=== PATIENT | female | born 1955 | race Caucasian/White ===

== ENCOUNTER → 2016-05-05 | Outpatient (CLI) | payer MEDICARE, OTHER ==
[2016-05-05 15:17] VITALS: BP 129/75; PULSE 84; RESP 16; TEMP 97.1; BMI 28.0
--- NOTE | 2016-05-05 16:24 | P.HPBAR ---
Bariatric H&P - History & Physicial H&P Date: 05/05/16 History & Physicial: Visit/CC: Patient initial contact: Initial weight: 56.812 kg Initial weight in pounds: 125.00 Height: 4 ft 8 in Initial BMI: 28.0 Last weight: Current weight: 56.812 kg Current weight in pounds: 125.00 Current BMI: 28.0 [place] body weight (based on NIH guidelines): 36.287 kg Excess body weight loss: 0.0% The patient is a 60 year-old F who presents for Bariatric Assessment. The patient presents today for sleeve gastrectomy fall. She's had some minimal GERD symptoms and dysphagia. Past Medical History Past Medical History: Asthma, Diabetes Mellitus, Hyperlipidemia, Rheumatoid Arthritis (RA) Additional Past Medical History / Comment(s): Neck/back pain, DVT History of Any Multi-Drug Resistant Organisms: None Reported Past Surgical History: Bariatric Surgery, Section, Orthopedic Surgery Past Psychological History: Depression Smoking Status: Never smoker Past Alcohol Use History: Rare Past Drug Use History: None Reported Surgical - Exam Vital Signs Temp Pulse Resp BP 97.1 F L 84 16 129/75 05/05/16 15:09 05/05/16 15:09 05/05/16 15:09 05/05/16 15:09 - General well developed, no distress - Eyes PERRL - ENT normal pinna - Respiratory normal expansion - Cardiovascular Rhythm: regular - Abdomen Abdomen: soft, non tender Bariatric Assessment & Plan Plan: Status post sleeve gastrectomy. Patient will undergo esophagram. She'll also be scheduled for EGD to evaluate her GERD symptoms. Bariatric Checklist Checklist: Plan: Checklist: EGD: 1. Hiatal hernia: 2. H. Pylori: HgbA1c: Vitamin D: Smoking: Never smoker Primary care physician referral: Psychiatry clearance: Cardiology clearance: Sleep study: Diet journal: VTE risk score: VTE risk level: Rehab needs at discharge:
== END | disposition home or self-care (01) ==
LOC: BARWHC3 14:21
PROVIDERS: ATTEND Surgery
DX: Z48.815 Encounter for surgical aftercare following surgery on the digestive system (principal); Z98.84 Bariatric surgery status; K21.9 Gastro-esophageal reflux disease without esophagitis; R13.10 Dysphagia, unspecified; Z68.28 Body mass index [BMI] 28.0-28.9, adult
CPT/HCPCS: 99211

== ENCOUNTER → 2016-05-15 | Outpatient (CLI) | payer MEDICARE, OTHER ==
--- NOTE | 2016-05-15 12:40 | FL ---
EXAMINATION: Cervical and Thoracic Esophagram DATE OF EXAM: 05/15/2016 12:29 PM CLINICAL INDICATION: 60-year-old female dysphagia, nausea, vomiting, and heartburn. Patient with lap band for 7 years removed and replaced with a gastric sleeve 3 years ago. COMPARISON: Total Fluoroscopy Time: 1.7 minutes FINDINGS: The swallowing mechanism is normal and hypopharyngeal anatomy is preserved. The cervical and thoracic portions have a normal course and caliber. There are mild to moderate terti chapo peristaltic contractions. The mucosa is normal and no persistent filling defect is encountered. There is a moderate-sized hiatal hernia and moderate to severe gastroesophageal reflux with Valsalva maneuver when the patient is supine. Postsurgical changes of sleeve gastrectomy are noted in the stomach. There is a small focal outpouchi ng of contrast projecting towards the right and posteriorly along the inferior margin of the hiatal h ernia probably postsurgical mural redundancy. No persistent filling defect seen. IMPRESSION: Moderate-sized hiatal hernia and moderate to severe gastroesophageal reflux. Status post sleeve gastr ectomy.
== END | disposition home or self-care (01) ==
LOC: RADFLWHC 11:31
PROVIDERS: ATTEND Surgery
DX: K21.9 Gastro-esophageal reflux disease without esophagitis (principal); K44.9 Diaphragmatic hernia without obstruction or gangrene; Z98.84 Bariatric surgery status
CPT/HCPCS: 74220

== ENCOUNTER 2016-05-16 07:01 | Day surgery (SDC) | payer MEDICARE, OTHER ==
[2016-05-13 14:26] VITALS: BMI 27.1
[~2016-05-16 07:01] MED LIST: LACTATED RINGERS 1,000 ML IV SCH
[2016-05-16 07:18] VITALS: RESP 18; TEMP 96.3
[2016-05-16 07:44] LABS: Glucose,Whole Blood 97 mg/dL (75-99)
[2016-05-16] MEDS ORDERED: PROPOFOL 10 MG/ML 20 ML VIAL IV ONE (07:51)
[2016-05-16] MEDS ORDERED: LIDOCAINE 1% INJ 10MG/ML (20 ML MDV) ONE (07:51)
[2016-05-16] MEDS ORDERED: GLYCOPYRROLATE 0.2 MG/ML 2 ML VIAL ONE (07:51)
--- NOTE | 2016-05-16 08:00 | P.GSHP ---
History of Present Illness H&P Date: 05/16/16 Chief Complaint: GERD This is a 60-year-old female who presents today for EGD. Patient has had problems with heartburn and reflux. She is undergoing recent esophagram shows evidence of a hiatal hernia. - Constitutional Constitutional: Reports as per HPI Past Medical History Past Medical History: Asthma, COPD, Diabetes Mellitus, Deep Vein Thrombosis (DVT ), GERD/Reflux, Hyperlipidemia, Osteoarthritis (OA) Additional Past Medical History / Comment(s): nausea and vomiting with food,Neck /back pain, DVT lt leg 2003,lower leg swelling,constipation History of Any Multi-Drug Resistant Organisms: None Reported Past Surgical History: Bariatric Surgery, Section, Joint Replacement, Orthopedic Surgery Additional Past Surgical History / Comment(s): Gastric Sleeve, x2, hematoma removed from scalp,rt knee replacement,lt knee OR,"tummy tuck" Past Anesthesia/Blood Transfusion Reactions: Previous Problems w/ Anesthesia Additional Past Anesthesia/Blood Transfusion Reaction / Comment(s): "feels like I have a hard time breathing when first waking up with Anesthesia".No hx blood transfusion Past Psychological History: Depression Smoking Status: Former smoker Past Alcohol Use History: Rare Additional Past Alcohol Use History / Comment(s): smoked from age [age], smoked approx 1-2ppd Past Drug Use History: None Reported - Past Family History Mother Additional Family Medical History / Comment(s): heart problems,stomach problems Father Family Medical History: Diabetes Mellitus Sister(s) Family Medical History: Cancer, Congestive Heart Failure (CHF), Diabetes Mellitus, Renal Disease Additional Family Medical History / Comment(s): breast CA Medications and Allergies Home Medications Medication Instructions Recorded Confirmed Type Albuterol Sulfate [Proair Hfa] 2 puff INHALATION Q6HR PRN 12/26/13 05/16/16 History Diazepam [Valium] 5 mg PO BID PRN 12/26/13 05/16/16 History FLUoxetine HCL [PROzac] 40 mg PO HS 12/26/13 05/16/16 History Fluticasone/Salmeterol [Advair 1 puff INHALATION Q12HR PRN 12/26/13 05/16/16 History 250-50 Diskus] Furosemide [Lasix] 20 mg PO DAILY 12/26/13 05/16/16 History Naproxen [Naprosyn] 500 mg PO Q12HR PRN 12/26/13 05/16/16 History Potassium Chloride [Klor-Con 10] 10 meq PO DAILY 12/26/13 05/16/16 History Simvastatin [Zocor] 40 mg PO HS 12/26/13 05/16/16 History Triamcinolone 0.1% Cream [Kenalog] 1 applicatio TOPICAL BID 12/26/13 05/16/16 History metFORMIN HCL 1,000 mg PO QAM 12/26/13 05/16/16 History Calcium Carbonate [Tums] 500 mg PO QID PRN 05/13/16 05/16/16 History HYDROcodone/APAP 10-325MG [[place] 1 tab PO Q6H PRN 05/13/16 05/16/16 History 10-325] Loratadine 10 mg PO DAILY 05/13/16 05/16/16 History metFORMIN HCL [Glucophage] 500 mg PO 1900 05/13/16 05/16/16 History Allergies Allergy/AdvReac Type Severity Reaction Status Date / Time latex Allergy Rash/Hives Verified 05/16/16 07:19 aspirin AdvReac upsets Verified 05/16/16 07:19 stomach Surgical - Exam Vital Signs Temp Pulse Resp BP Pulse Ox 96.3 F L 71 18 131/70 98 05/16/16 07:17 05/16/16 07:17 05/16/16 07:17 05/16/16 07:17 05/16/16 07:17 - General well developed, no distress - Eyes PERRL - ENT normal pinna - Neck no masses - Respiratory normal expansion - Cardiovascular Rhythm: regular - Abdomen Abdomen: soft, non tender Assessment and Plan Plan: GERD. We'll perform EGD
--- NOTE | 2016-05-16 08:14 | P.OP ---
Date of Procedure: 05/16/16 Preoperative Diagnosis: GERD Postoperative Diagnosis: Antral gastritis Mild esophagitis Hiatal hernia Procedure(s) Performed: EGD Anesthesia: MAC Surgeon: Gab Casas Pathology: other (Antral, esophagus) Condition: stable Disposition: PACU Description of Procedure: The patient's placed on the endoscopy table in the lateral position. She received IV sedation. The gastroscope some placed oropharynx passed in the esophagus and stomach. Scope was then placed through the pylorus. The first and second portion of the duodenum appeared normal. Scope was then brought back the antrum and this appeared minimally inflamed and a biopsy was performed. The scope was then brought back through the gastric sleeve. There is no evidence of obstruction or stenosis. Scope was then brought back level GE junction and there was evidence of a hiatal hernia. There is also some mild distal esophagitis. The scope was retroflexed and a picture of a hiatal hernia was performed. A biopsy of the distal esophagitis was performed as well. The scope was then brought back into the proximal esophagus and this appeared normal. Scope was withdrawn for patient.
[2016-05-16 08:57] VITALS: BP 132/66; PULSE 68
== END 2016-05-16 09:06 | disposition home or self-care (01) ==
LOC: ORWHC2ENDO 07:01
PROVIDERS: ATTEND Surgery
DX: K21.9 Gastro-esophageal reflux disease without esophagitis (principal); K29.50 Unspecified chronic gastritis without bleeding; K44.9 Diaphragmatic hernia without obstruction or gangrene; J44.9 Chronic obstructive pulmonary disease, unspecified; J45.909 Unspecified asthma, uncomplicated; E11.9 Type 2 diabetes mellitus without complications; E78.5 Hyperlipidemia, unspecified; M19.90 Unspecified osteoarthritis, unspecified site; F32.9 Major depressive disorder, single episode, unspecified; K59.00 Constipation, unspecified; Z88.6 Allergy status to analgesic agent; Z91.040 Latex allergy status; Z79.51 Long term (current) use of inhaled steroids; Z79.1 Long term (current) use of non-steroidal anti-inflammatories (NSAID); Z79.84 Long term (current) use of oral hypoglycemic drugs; Z79.899 Other long term (current) drug therapy; Z87.891 Personal history of nicotine dependence; Z86.718 Personal history of other venous thrombosis and embolism; Z83.3 Family history of diabetes mellitus; Z98.84 Bariatric surgery status; Z96.651 Presence of right artificial knee joint; Z90.3 Acquired absence of stomach [part of]
CPT/HCPCS: 88305; 88342; 43239; J2001; J2704; 99153

== ENCOUNTER → 2016-07-28 | Outpatient (CLI) | payer MEDICARE, OTHER ==
--- NOTE | 2016-07-28 16:05 | P.HPBAR ---
Bariatric H&P - History & Physicial H&P Date: 07/28/16 History & Physicial: Visit/CC: Patient initial contact: Initial weight: 56.812 kg Initial weight in pounds: Height: Initial BMI: Last weight: Current weight: Current weight in pounds: Current BMI: [place] body weight (based on NIH guidelines): Excess body weight loss: The patient is a 60 year-old F who presents for Bariatric Assessment. The patient rents today for sleeve gastrectomy fall. She's had complaints of GERD. Her GERD symptoms are managed with omeprazole. Review of Systems Constitutional: Reports as per HPI Past Medical History Past Medical History: Asthma, Diabetes Mellitus, Hyperlipidemia, Rheumatoid Arthritis (RA) Additional Past Medical History / Comment(s): Neck/back pain, DVT History of Any Multi-Drug Resistant Organisms: None Reported Past Surgical History: Bariatric Surgery, Section, Orthopedic Surgery Past Psychological History: Depression Smoking Status: Never smoker Past Alcohol Use History: Rare Past Drug Use History: None Reported Surgical - Exam - General well developed, no distress - Eyes PERRL - ENT normal pinna - Neck no masses - Respiratory normal expansion - Cardiovascular Rhythm: regular - Abdomen Abdomen: soft, non tender Bariatric Assessment & Plan Plan: Status post sleeve gastrectomy. Patient did well well with her weight loss she has lost approximately 130 pounds. Her GERD symptoms are be managed with omeprazole. She will follow-up in 2 months Bariatric Checklist Checklist: Plan: Checklist: EGD: 1. Hiatal hernia: 2. H. Pylori: HgbA1c: Vitamin D: Smoking: Never smoker Primary care physician referral: Psychiatry clearance: Cardiology clearance: Sleep study: Diet journal: VTE risk score: VTE risk level: Rehab needs at discharge:
[2016-07-28 16:07] VITALS: BP 111/57; PULSE 86; RESP 14; TEMP 97.9; BMI 28.9
== END | disposition home or self-care (01) ==
LOC: BARWHC3 14:09
PROVIDERS: ATTEND Surgery
DX: Z48.815 Encounter for surgical aftercare following surgery on the digestive system (principal); K21.9 Gastro-esophageal reflux disease without esophagitis; Z98.84 Bariatric surgery status; Z68.24 Body mass index [BMI] 24.0-24.9, adult; Z79.899 Other long term (current) drug therapy
CPT/HCPCS: 99211

== ENCOUNTER 2016-11-20 06:52 | Day surgery (SDC) | payer MEDICARE, OTHER ==
[2016-11-14 13:31] VITALS: BMI 30.6
[~2016-11-20 06:52] MED LIST changes: +LIDOCAINE 1% 20 ML VIAL (10MG/ML) FOR IV START INTRADERMA PRN
[2016-11-20 07:05] VITALS: RESP 18; TEMP 98
[2016-11-20] MEDS ORDERED: LACTATED RINGERS 1,000 ML IV ONE (07:07)
[2016-11-20] MEDS ORDERED: LIDOCAINE 1% 20 ML VIAL (10MG/ML) FOR IV START INTRADERMA ONE (07:07)
[2016-11-20 07:17] LABS: Glucose,Whole Blood 96 mg/dL (75-99)
[2016-11-20] MEDS ORDERED: PROPOFOL 10 MG/ML 20 ML VIAL IV ONE (07:55)
[2016-11-20] MEDS ORDERED: LIDOCAINE 1% INJ 10MG/ML (20 ML MDV) ONE (07:55)
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
--- NOTE | 2016-11-20 08:25 | P.OP ---
Date of Procedure: 11/20/16 Preoperative Diagnosis: Anemia Screening colonoscopy Postoperative Diagnosis: Mild antral gastritis Diverticulosis Procedure(s) Performed: EGD Colonoscopy Implants: Surgeon: Gab Casas Pathology: other (Antrum, rectal polyp) Condition: stable Indications for Procedure: Operative Findings: Description of Procedure: The patient's placed on the endoscopy table lateral position. She received IV sedation. The gastroscope some placed oropharynx passed in the esophagus and stomach. The scope was then placed through the pylorus. The first and second portion of the duodenum appeared normal. Scope was then brought back the antrum this. Mildly inflamed a biopsies performed. Scope was then brought through the gastric sleeve. Sleeve appeared normal. There is known to any obstruction or inflammation. The GE junction was at 47 is. The distal esophagus appeared normal. The proximal esophagus. Normal. Scope was withdrawn for patient. Next digital rectal exam was performed which revealed no abnormalities. The flexible colonoscope was then placed patient anus passed throughout the entire colon. The ileocecal valve was visualized. Cecum, ascending and transverse colon appeared normal. In the descending; there is mild to moderate diverticular changes. In the rectosigmoid area there was a small sessile polyp this removed the forcep. Scope was withdrawn for patient. The rectum appeared normal. Scope was withdrawn for patient.
[2016-11-20 08:36] VITALS: BP 118/62; PULSE 78
== END 2016-11-20 08:59 | disposition home or self-care (01) ==
LOC: ORWHC2ENDO 06:52
PROVIDERS: ATTEND Surgery
DX: K31.9 Disease of stomach and duodenum, unspecified (principal); K57.30 Diverticulosis of large intestine without perforation or abscess without bleeding; K63.5 Polyp of colon; D64.9 Anemia, unspecified; E11.9 Type 2 diabetes mellitus without complications; Z79.84 Long term (current) use of oral hypoglycemic drugs; E78.5 Hyperlipidemia, unspecified; I82.4Z2 Acute embolism and thrombosis of unspecified deep veins of left distal lower extremity; M06.9 Rheumatoid arthritis, unspecified; J44.9 Chronic obstructive pulmonary disease, unspecified; Z87.891 Personal history of nicotine dependence; Z79.51 Long term (current) use of inhaled steroids; Z79.899 Other long term (current) drug therapy; Z88.6 Allergy status to analgesic agent; Z91.040 Latex allergy status; Z98.84 Bariatric surgery status
CPT/HCPCS: 88305; 88342; 45380; 43239; J2001; J2704

== ENCOUNTER → 2018-01-11 | Outpatient (CLI) | payer MEDICARE, OTHER ==
--- NOTE | 2018-01-11 08:10 | US ---
EXAMINATION TYPE: US gallbladder DATE OF EXAM: 01/11/2018 COMPARISON: NONE CLINICAL HISTORY: 62-year-old female generalized abdominal R10.84 R101.13 epigastric K21.9. Abdomin al pain Lateral to Umbilicus; Jig Inspector notes: HT4'8, WT 173lbs. TECHNIQUE: Multiple sonographic images of the right upper quadrant are obtained. FINDINGS: EXAM MEASUREMENTS: Liver Length: 15.6 cm Gallbladder Wall: 0.2 cm CBD: 0.5 cm Right Kidney: 9.5 x 5.1 x 4.8 cm Pancreas: head seen and remainder obscured by overlying bowel gas Liver: Limitation in visualization of certain portions due to overlying bowel gas. Slight heterogeneo us echotexture likely on a technical basis. Gallbladder: wnl; Phrygian Cap. Evidence for sonographic Lin's sign: tender at hepatorenal recess CBD: wnl Right Kidney: No hydronephrosis IMPRESSION: 1. Suboptimal visualization of the pancreas. There is also limited visualization of portions of the l iver. 2. No cholelithiasis or ultrasound evidence for acute cholecystitis. 3. The phone representative noted some tenderness while scanning at the junction between the inferior right li pavan lobe and right kidney.
--- NOTE | 2018-01-11 09:34 | NM ---
EXAMINATION TYPE: NM hepatobiliary w CCK DATE OF EXAM: 01/11/2018 COMPARISON: Ultrasound same day HISTORY: 62-year-old female with generalized abdominal and epigastric pain TECHNIQUE: After the intravenous administration of 5.07 mCi Tc 99m Mebrofenin hepatobiliary scintigra phy is performed. Immediate images post injection. FINDINGS: There is satisfactory initial accumulation of tracer by the liver. The gallbladder is visualized wit hin 10 minutes. The small bowel activity is noted within 12 minutes. There is progressive gallbladde r accumulation until 14 minutes after which, the gallbladder begins to spontaneously empty. At one ho ur CCK was administered, patient was injected with 1.6 mcg of Kinevac, and gallbladder ejection fract ion is calculated. After Kinevac administration, gallbladder showed initial early filling and then em ptying with gallbladder ejection fraction calculated at 57%. IMPRESSION: 1. No scintigraphic evidence for acute/chronic cholecystitis or biliary dyskinesia. 2. Initially, there was some spontaneous gallbladder emptying. Gallbladder ejection fraction is calcu lated in the normal range (57%).
== END | disposition home or self-care (01) ==
LOC: RADUSMAIN 06:54
PROVIDERS: ATTEND Surgery
DX: R10.84 Generalized abdominal pain (principal); R10.13 Epigastric pain; K21.9 Gastro-esophageal reflux disease without esophagitis
CPT/HCPCS: 76705; 78227; A9537; J2805

== ENCOUNTER 2018-01-28 06:46 | Day surgery (SDC) | payer MEDICARE, OTHER ==
[2018-01-21 15:37] VITALS: BMI 38.7
[~2018-01-28 06:46] MED LIST changes: +DEXAMETHASONE SOD PHOSPHATE 10 MG/ML 1 ML VIAL IV ONE; +HEPARIN SODIUM,PORCINE 5,000 UNIT/ML 1 ML VIAL SQ ONE; -LACTATED RINGERS 1,000 ML IV SCH; +MIDAZOLAM 2 MG/2 ML VIAL IV PRN; +ONDANSETRON 4 MG/2 ML VIAL IVP ONE; +SCOPOLAMINE 1.5MG/72HR PATCH TRANSDERM ONE
[2018-01-28] MEDS ORDERED: LACTATED RINGERS 1,000 ML IV ONE (07:05)
[2018-01-28 07:24] LABS: Glucose,Whole Blood 102 mg/dL (75-99)
[2018-01-28] MEDS: ceFAZolin IN SWFI 2 GM/20 ML SYRINGE IVP ONE ×2 (07:54→08:10)
[2018-01-28] MEDS ORDERED: BUPIVACAIN-EPI 0.25%-1:200,000 30 ML VIAL SQ ONE ×2 (07:54→08:24)
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
[2018-01-28] MEDS ORDERED: LIDOCAINE 1% INJ 10MG/ML (20 ML MDV) ONE (08:00)
[2018-01-28] MEDS ORDERED: GLYCOPYRROLATE 0.2 MG/ML 2 ML VIAL ONE (08:00)
[2018-01-28] MEDS ORDERED: SUCCINYLCHOLINE CHLORIDE 100 MG/5 ML SYR IV ONE (08:00)
[2018-01-28] MEDS ORDERED: NEOSTIGMINE 1 MG/ML 10 ML VIAL ONE (08:00)
[2018-01-28] MEDS ORDERED: fentaNYL (PF) 50 MCG/ML 2 ML AMP ONE (08:00)
[2018-01-28] MEDS ORDERED: ROCURONIUM BROMIDE 10 MG/ML 10 ML VIAL IV ONE (08:00)
[2018-01-28] MEDS ORDERED: KETOROLAC 30 MG/ML 1 ML VIAL ONE (08:00)
[2018-01-28] MEDS ORDERED: MORPHINE SULFATE 10 MG/ML SYRINGE ONE (08:00)
[2018-01-28] MEDS ORDERED: PROPOFOL 10 MG/ML 20 ML VIAL IV ONE (08:00)
[2018-01-28] MEDS ORDERED: MIDAZOLAM 2 MG/2 ML VIAL ONE (08:00)
[2018-01-28 09:07] VITALS: TEMP 98.2
[2018-01-28] MEDS: LACTATED RINGERS 1,000 ML IV SCH ×3 (09:30→11:23)
[2018-01-28] MEDS: HYDROmorphone 1 MG/ML 1 ML SYRINGE IVP PRN ×3 (09:31→09:50)
[2018-01-28] MEDS ORDERED: HYDROcodone/APAP 10-325MG 1 EACH TAB PO ONE (10:28)
[2018-01-28 11:16] VITALS: BP 116/73; PULSE 85; RESP 18
--- NOTE | 2018-02-05 12:52 | P.OP ---
Date of Procedure: 01/28/18 Preoperative Diagnosis: Chronic cholecystitis Postoperative Diagnosis: Chronic cholecystitis Procedure(s) Performed: Laparoscopic cholecystectomy Anesthesia: ANA PAULA Surgeon: Gab Casas Estimated Blood Loss (ml): 5 Pathology: other (Gallbladder) Condition: stable Disposition: PACU Description of Procedure: The patient was placed on the operating table. The patient received a general endotracheal tube anesthesia. The patients abdomen was prepped and draped in the usual sterile fashion. Through an infraumbilical stab incision, the fascia of the anterior abdominal wall was grasped with a pair of Kochers and then the Veress needle was placed in the peritoneal cavity. Position of the Veress needle was confirmed with positive drop test. The abdomen was then insufflated. After adequate insufflation, the 10 mm trocar was placed in the peritoneal cavity. Following this the laparoscope was placed in the peritoneal cavity. The patient was placed in the head-up, right side up position and then a 5 mm trocar was placed in the right lateral and right subcostal position under direct visualization. A 8 mm trocar was placed in the epigastric position. The gallbladder was grasped in the fundus and infundibulum. Traction on the gallbladder was placed in the lateral and the cephalad positions. The triangle of [place] was visualized.. The cystic duct was bluntly dissected until the union of the cystic duct and common bile duct was seen. The cystic duct was then divided and sealed with the Harmonic scissors. A PDS Endoloop was then placed throughout the cystic duct stump. The cystic artery divided and sealed with the Harmonic scissors. The gallbladder was then removed from the liver bed using Harmonic scissors. The gallbladder was then extracted through the epigastric port site. Operative field was checked for any bleeding spots and Harmonic scissors was used to coagulate the liver bed. The abdomen was irrigated. The trocars were removed. The skin was closed using interrupted 3-0 Vicryl suture. Dermabond dressing were applied. The patient tolerated the procedure well.
== END 2018-01-28 11:45 | disposition home or self-care (01) ==
LOC: OR 06:46
PROVIDERS: ATTEND Surgery
DX: K81.1 Chronic cholecystitis (principal); J44.9 Chronic obstructive pulmonary disease, unspecified; E11.9 Type 2 diabetes mellitus without complications; Z79.84 Long term (current) use of oral hypoglycemic drugs; K21.9 Gastro-esophageal reflux disease without esophagitis; E78.5 Hyperlipidemia, unspecified; M19.90 Unspecified osteoarthritis, unspecified site; N28.9 Disorder of kidney and ureter, unspecified; Z98.84 Bariatric surgery status; F32.9 Major depressive disorder, single episode, unspecified; Z87.891 Personal history of nicotine dependence; Z79.51 Long term (current) use of inhaled steroids; Z79.899 Other long term (current) drug therapy; Z88.6 Allergy status to analgesic agent; Z91.040 Latex allergy status
CPT/HCPCS: 88304; 84132; 47562; J2250; J1644; J1100; J2710; J2270; J2405; J2001; J3010; J1885; J1170; J0330; J2704; J0690

== ENCOUNTER → 2018-02-25 | Outpatient (CLI) | payer MEDICARE, OTHER ==
[2018-02-25 17:16] LABS: LDL Cholesterol,Calculated 108.2 mg/dL (0.0-131.0); VLDL Calculation 23.8 mg/dL (5.00-40.00)
[2018-02-25 17:17] LABS: Albumin/Globulin Ratio 1.54 (1.20-2.10); Anion Gap 6.6 mmol/L (4.00-12.00); Calcium 8.8 mg/dL (8.7-10.3); Carbon Dioxide 26.4 mmol/L (21.6-31.8); Globulin 2.6 g/dL (2.1-3.7); Potassium 4.4 mmol/L (3.5-5.5); Total Bilirubin 0.3 mg/dL (0.2-1.2); Total Protein 6.6 g/dL (6.2-8.2)
== END | disposition home or self-care (01) ==
LOC: LABWHC1 10:44
PROVIDERS: ATTEND Internal Medicine Endocrinology, Diabetes & Metabolism
DX: E11.9 Type 2 diabetes mellitus without complications (principal)
CPT/HCPCS: 36415; 80053; 80061; 82043; 82570; 84443

== ENCOUNTER → 2018-05-13 | Outpatient (CLI) | payer MEDICARE, OTHER ==
[2018-05-13 10:47] VITALS: BP 135/87; PULSE 73; TEMP 98.1; BMI 40.6
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
--- NOTE | 2018-05-13 12:38 | FL ---
EXAMINATION TYPE: FL barium swallow DATE OF EXAM: 05/13/2018 CLINICAL HISTORY: History of hiatal hernia and gastroesophageal reflux. Gastric sleeve 5 years prior. TECHNIQUE: A double contrast esophagram is performed utilizing air and barium. A total of 1 minute and 51 seconds of fluoroscopic time was utilized during procedure. 35 fluoroscopic images were saved. COMPARISON: 02/10/2011 FINDINGS: The esophagus shows abnormal motility and emptying into the stomach with delayed passage an d tertiary contractions. There is a moderate hiatal hernia present. Moderate grade or stricture noted . No significant gastroesophageal reflux was seen during real time performance of this study. IMPRESSION: 1. Moderate hiatal hernia. 2. Esophageal dysmotility with findings suggesting presbyesophagus as there are tertiary contractions present. 3. Moderate grade gastroesophageal reflux to the level of mid thoracic esophagus..
[2018-05-13 12:49] LABS: HCT 40.1 % (34.0-46.0); HGB 12.1 gm/dL (11.4-16.0); Hypochromasia Slight; MCH 28.6 pg (25.0-35.0); MCHC 30.1 g/dL (31.0-37.0); MCV 94.9 fL (80.0-100.0); Mean Platelet Volume 6.7; Platelet Count 346 k/uL (150-450); RBC 4.22 m/uL (3.80-5.40); WBC 6.5 k/uL (3.8-10.6)
[2018-05-13 20:34] LABS: Vitamin D 25 Hydroxy 67.2 ng/mL (30.0-100.0)
[2018-05-13 21:02] LABS: Folate, Serum >24.0 ng/mL
== END ==
LOC: BARWHC3 10:05
PROVIDERS: ATTEND Surgery
DX: Z48.815 Encounter for surgical aftercare following surgery on the digestive system (principal); E66.01 Morbid (severe) obesity due to excess calories; K21.9 Gastro-esophageal reflux disease without esophagitis; E55.9 Vitamin D deficiency, unspecified; Z68.41 Body mass index [BMI] 40.0-44.9, adult; Z98.84 Bariatric surgery status; Z87.891 Personal history of nicotine dependence
CPT/HCPCS: 84134; 84425; 82607; 82746; 85027; 82306; 74220; 36415; G0463; 99211

== ENCOUNTER 2018-06-03 07:31 | Day surgery (SDC) | payer MEDICARE, OTHER ==
[2018-06-01 15:09] VITALS: BMI 40.1
[~2018-06-03 07:31] MED LIST changes: -DEXAMETHASONE SOD PHOSPHATE 10 MG/ML 1 ML VIAL IV ONE; -HEPARIN SODIUM,PORCINE 5,000 UNIT/ML 1 ML VIAL SQ ONE; +HYDROmorphone 0.5 MG/0.5 ML SYRINGE IVP PRN; +LACTATED RINGERS 1,000 ML IV SCH; -LIDOCAINE 1% 20 ML VIAL (10MG/ML) FOR IV START INTRADERMA PRN; -MIDAZOLAM 2 MG/2 ML VIAL IV PRN; -ONDANSETRON 4 MG/2 ML VIAL IVP ONE; -SCOPOLAMINE 1.5MG/72HR PATCH TRANSDERM ONE
[2018-06-03 08:01] VITALS: TEMP 97.5
[2018-06-03 08:12] LABS: Glucose,Whole Blood 112 mg/dL (75-99)
[2018-06-03] MEDS ORDERED: LIDOCAINE 1% 20 ML VIAL (10MG/ML) FOR IV START INTRADERMA ONE (08:12)
[2018-06-03] MEDS ORDERED: PROPOFOL 10 MG/ML 20 ML VIAL IV ONE (08:56)
[2018-06-03] MEDS ORDERED: LIDOCAINE 1% INJ 10MG/ML (20 ML MDV) ONE (08:56)
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
--- NOTE | 2018-06-03 09:12 | P.OP ---
Date of Procedure: 06/03/18 Preoperative Diagnosis: Dysphagia Postoperative Diagnosis: Antral gastritis Procedure(s) Performed: EGD Anesthesia: MAC Surgeon: Gab Casas Pathology: other (Antrum) Condition: stable Description of Procedure: The patient's placed on the endoscopy table in the lateral position. She received IV sedation. The gastroscope placed oropharynx passed in the esophagus and into the stomach. Scope was then placed through the pylorus. The first and second portion of the duodenum appeared normal. The scope was then brought back the antrum and this appeared mildly inflamed. A biopsies performed. Scope was withdrawn the gastric sleeve appeared to be mildly dilated. There is no evidence of any stricture or obstruction of the sleeve. The GE junction was at 47 is. There is no significant hiatal hernia. The distal esophagus appeared normal. The proximal esophagus appeared normal. The scope was withdrawn for patient.
[2018-06-03 09:16] VITALS: RESP 16
[2018-06-03 09:30] VITALS: BP 134/79; PULSE 61
[2018-06-03 09:36] LABS: Glucose,Whole Blood 142 mg/dL (75-99)
== END 2018-06-03 10:12 | disposition home or self-care (01) ==
LOC: ORWHC2ENDO 07:31
PROVIDERS: ATTEND Surgery
DX: K29.50 Unspecified chronic gastritis without bleeding (principal); Z90.3 Acquired absence of stomach [part of]; Z98.84 Bariatric surgery status; J44.9 Chronic obstructive pulmonary disease, unspecified; E11.9 Type 2 diabetes mellitus without complications; K21.9 Gastro-esophageal reflux disease without esophagitis; E78.5 Hyperlipidemia, unspecified; M19.90 Unspecified osteoarthritis, unspecified site; N28.9 Disorder of kidney and ureter, unspecified; D50.9 Iron deficiency anemia, unspecified; E66.01 Morbid (severe) obesity due to excess calories; Z68.41 Body mass index [BMI] 40.0-44.9, adult; F17.210 Nicotine dependence, cigarettes, uncomplicated; Z79.51 Long term (current) use of inhaled steroids; Z79.899 Other long term (current) drug therapy; Z79.84 Long term (current) use of oral hypoglycemic drugs; Z96.651 Presence of right artificial knee joint; Z91.040 Latex allergy status; Z91.048 Other nonmedicinal substance allergy status; Z88.6 Allergy status to analgesic agent
CPT/HCPCS: 88305; 43239; J2001; J2704

== ENCOUNTER → 2018-06-14 | Outpatient (CLI) | payer MEDICARE, OTHER ==
[2018-06-14 14:53] VITALS: BP 120/75; PULSE 90; RESP 16; TEMP 98; BMI 40.3
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
== END | disposition home or self-care (01) ==
LOC: BARWHC3 14:29
PROVIDERS: ATTEND Surgery
DX: Z09 Encounter for follow-up examination after completed treatment for conditions other than malignant neoplasm (principal); K21.9 Gastro-esophageal reflux disease without esophagitis; E11.9 Type 2 diabetes mellitus without complications; E78.5 Hyperlipidemia, unspecified; M19.90 Unspecified osteoarthritis, unspecified site; F32.9 Major depressive disorder, single episode, unspecified; Z98.84 Bariatric surgery status; Z98.890 Other specified postprocedural states; Z96.651 Presence of right artificial knee joint; Z87.891 Personal history of nicotine dependence
CPT/HCPCS: 99211

== ENCOUNTER → 2018-11-26 | Outpatient (CLI) | payer MEDICARE, OTHER ==
[2018-11-26 15:31] LABS: Basophils # (A) 0.1 k/uL (0-0.2); Basophils % (A) 1 %; Eosinophils # (A) 0.3 k/uL (0-0.7); Eosinophils % (A) 4 %; HCT 37.6 % (34.0-46.0); HGB 11.6 gm/dL (11.4-16.0); Hypochromasia Moderate; Lymphocytes # (A) 1.9 k/uL (1.0-4.8); Lymphocytes % (A) 30 %; MCH 30.3 pg (25.0-35.0); MCHC 30.9 g/dL (31.0-37.0); Mean Platelet Volume 7.2; Monocytes # (A) 0.4 k/uL (0-1.0); Monocytes % (A) 6 %; Neutrophils # (A) 3.5 k/uL (1.3-7.7); Neutrophils % (A) 56 %; Platelet Count 322 k/uL (150-450); RBC 3.83 m/uL (3.80-5.40); RDW 14.7 % (11.5-15.5); WBC 6.2 k/uL (3.8-10.6)
[2018-11-26 15:40] LABS: Potassium 4.2 mmol/L (3.5-5.1)
[2018-11-26 15:45] LABS: INR 0.9 (<1.2); Prothrombin Time 10.1 sec (9.0-12.0)
[2018-11-26 20:35] LABS: Hemoglobin A1C 6.7 % (4.0-6.0)
== END ==
LOC: LABWHC1 14:38
PROVIDERS: ATTEND Orthopaedic Surgery
DX: Z01.812 Encounter for preprocedural laboratory examination (principal); M17.12 Unilateral primary osteoarthritis, left knee; E11.9 Type 2 diabetes mellitus without complications
CPT/HCPCS: 36415; 80051; 83036; 85025; 85610; 87070

== ENCOUNTER 2018-12-06 14:04 | Inpatient (IN) | payer MEDICARE, OTHER ==
--- NOTE | 2018-12-05 09:57 | HP ---
HISTORY AND PHYSICAL SURGERY: 12/06/2018. Luz Alfaro is a 63-year-old patient seen with symptomatic left knee osteoarthritis. After having treatment options discussed with her, she elected to proceed with left total knee arthroplasty. Consent regarding the procedure was obtained. Medical clearance was provided by Dr. Nicholson. PAST MEDICAL HISTORY: Prz-qjnstqt-eznbjlcil diabetes, hyperlipidemia, hypertension, asthma. PAST SURGICAL HISTORY: section, bilateral knee arthroscopy, right total knee arthroplasty, lap band surgery, abdominoplasty, cholecystectomy. DAILY MEDICATIONS: Glipizide, Lasix, [place], Prilosec, Zocor. ALLERGIES: ASPIRIN, LATEX, NICKEL. SOCIAL HISTORY: She denies current tobacco use. PHYSICAL EXAMINATION: Evaluation of the left knee: Range of motion is -4/5 to 90 degrees. Tenderness along the medial and lateral joint lines. Crepitus along the medial and lateral compartments as well as the patellofemoral compartment. Her ligaments are stable. Hip rotation is without pain. Her distal neurovascular exam is intact. RADIOGRAPHS: Left knee radiographs revealed moderate to severe tricompartmental osteoarthritis. IMPRESSION: 1. Left knee osteoarthritis. 2. Hypertension. 3. Hyperlipidemia. 4. Xvs-klqqnmp-bvlduxgdj diabetes. PLAN: Left total knee arthroplasty. MMODL / IJN: [id number] /
[~2018-12-06 14:04] MED LIST changes: +ACETAMINOPHEN TAB 500 MG TAB PO ONE; -LACTATED RINGERS 1,000 ML IV SCH; +LIDOCAINE 1% 20 ML VIAL (10MG/ML) FOR IV START INTRADERMA PRN; +MELOXICAM 7.5 MG TAB PO ONE; +ONDANSETRON 4 MG/2 ML VIAL IVP PRN; +SCOPOLAMINE 1.5MG/72HR PATCH TRANSDERM ONE; +TRANEXAMIC ACID 1,000 MG in SODIUM CHLORIDE 0.9% 100 ML IVPB ONE
[2018-12-06] MEDS: LACTATED RINGERS 1,000 ML IV SCH ×3 (15:02→21:20)
[2018-12-06 15:07] LABS: Glucose,Whole Blood 114 mg/dL (75-99)
[2018-12-06] MEDS ORDERED: MIDAZOLAM (PF) 2 MG/2 ML VIAL IV ONE (15:25)
[2018-12-06] MEDS ORDERED: ROPIVACAINE 246.25 MG, EPINEPHrine 0.5 MG, KETOROLAC 30 MG, cloNIDine HCL/PF 80 MCG, WA... MISCELLANE ONE ×5 (15:34)
[2018-12-06] MEDS ORDERED: MIDAZOLAM 2 MG/2 ML VIAL ONE (16:16)
[2018-12-06] MEDS ORDERED: TRANEXAMIC ACID 1,000 MG/10 ML VIAL ONE (16:16)
[2018-12-06] MEDS ORDERED: PROPOFOL 10 MG/ML 20 ML VIAL IV ONE (16:16)
[2018-12-06] MEDS ORDERED: SODIUM CHLORIDE 0.9% 100 ML BAG ONE (16:16)
[2018-12-06] MEDS ORDERED: fentaNYL (PF) 50 MCG/ML 2 ML AMP ONE (16:16)
[2018-12-06] MEDS ORDERED: ceFAZolin 3,000 MG in SODIUM CHLORIDE 0.9% IRRIGATIO 3,000 ML IRRIGATION ONE (16:54)
[2018-12-06] MEDS ORDERED: ROPIVACAINE 0.2%-NS ON-Q PUMP 1,090 MG, EMPTY PAIN BALL 1 EACH MISCELLANE PRN (17:04)
--- NOTE | 2018-12-06 17:06 | P.ANPRN ---
Procedure Note - Anesthesia - Nerve Block Performed Left Adductor Canal Infusion Time Out Performed: Yes Date of Procedure: 12/06/18 Procedure Start Time: 15:26 Procedure Stop Time: 15:39 Location of Patient Procedure: PreOp Indication: Acute Post-Operative Pain, Requested by physician Sedation Type: Sedate with meaningful contact maintained Preparation: Sterile Prep, Sterile Dressing Position: Supine Catheter: Indwelling Needle Types: Pajunk Needle Gauge: 21 Technique: Ultrasound (ropi .5% 20cc ) Blood Aspirated: No Pain Paresthesia on Injection Noted: No Resistance on Injection: Normal Events: Uneventful and Well Tolerated
[2018-12-06] MEDS ORDERED: LACTATED RINGERS 1,000 ML IV ONE (18:09)
[2018-12-06] MEDS ORDERED: HYDROmorphone 0.5 MG/0.5 ML SYRINGE IVP PRN (18:29)
[2018-12-06] MEDS ORDERED: NALOXONE 0.4 MG/ML 1 ML VIAL IV PRN (18:29)
[2018-12-06] MEDS ORDERED: ONDANSETRON 4 MG/2 ML VIAL IVP PRN (18:29)
--- NOTE | 2018-12-06 18:29 | P.OP ---
Date of Procedure: 12/06/18 Preoperative Diagnosis: Left knee osteoarthritis Postoperative Diagnosis: Left knee osteoarthritis Procedure(s) Performed: Left total knee arthroplasty Implants: 1. Aesculap [place] titanium size left 3 narrow cemented femur 2. Aesculap [place] titanium size T1 cemented tibial baseplate 3. Aesculap [place] 10 mm polyethylene tibial insert 4. Aesculap [place] all polyethylene P2 patella Anesthesia: regional (And adductor canal catheter), local, spinal Surgeon: Lm Hawk [employer] Technician #1: Carlton Grace Estimated Blood Loss (ml): 50 Pathology: other (Bone) Condition: stable Disposition: PACU Indications for Procedure: 63-year-old patient seen was symptomatically left knee osteoarthritis. After treatment options were discussed, she elected to proceed with total knee arthroplasty Operative Findings: See description of procedure Description of Procedure: Patient was taken to the operative suite after having an adductor canal catheter placed by the department of anesthesia for postoperative pain management. Patient underwent a spinal anesthetic by the department of anesthesia. Patient was given preoperative IV intake antibiotics and TXA. A well-padded tourniquet was placed about the left lower extremity. The lower extremity was then prepped and draped in the normal sterile orthopedic fashion. The extremity was elevated, a tourniquet was insufflated to 300. A standard anterior incision was made sharply through skin. Dissection was taken down through the subcutaneous soft tissues down to the extensor mechanism. A medial arthrotomy was performed, patella was everted and knee was flexed. There was advanced osteoarthritis noted. I introduced my distal intramedullary femoral drill. I then introduced the distal femoral cutting jig. Sander HALL secured the cutting jig with 2 pins. I held retractors in position while Sander HALL performed the distal femoral resection through the guide area we now removed her distal femoral cutting guide. We now placed our 4-in-1 femoral cutting block and positioned and it was secured with 2 pins by Sander HALL while I held the block in position. The distal femoral finishing was now completed. A proximal tibial cutting guide was positioned. I held the guide in the appropriate position with both hands well Sander HALL inserted stabilizing pins into the guide. P roximal tibial cut was made. We now placed a trial femoral component into position, along with an appropriate size tibial tray and insert. We now took the knee through range of motion and had full extension good flexion and good overall soft tissue balance noted. The patella was everted and stabilized with 2 towel clips held by Sander HALL while I performed a flush with patellar quad tendon utilizing a fresh sawblade. We templated the patella, appropriate drill holes were made. An appropriate trial patella was positioned, knee was taken through full range of motion with the patella tracking very nicely. The trial patella was removed. Drill holes were made through the femoral component. All trial components were removed after marking off the appropriate rotation of the tibia. Retractors were now positioned along the proximal tibia. An appropriate keel punch was made with the appropriate size tibial guide by myself on Sander HALL assisted by holding retractors. At this point appropriate size implants were chosen and opened. The joint was irrigated copiously with pulse lavage mechanical irrigation. The posterior capsule was infiltrated with local analgesic. The wound was irrigated with pulse lavage mechanical irrigation. We mixed antibiotic methylmethacrylate. We placed the knee into flexion. We placed multiple retractors assisted by Sander HALL to expose the proximal tibia. Once the methyl methacrylate was ready, the tibial component was cemented into place removing any excess methylmethacrylate form by both myself and Sander HALL. The femoral component was cemented into place removing the removing any excess methylmethacrylate performed by both myself and Sander HALL. We then inserted the appropriate size polyethylene tibial insert. We made sure that it was locked into position. We took the knee into full extension, and then back in a flexion making sure we had removed any excess methylmethacrylate. The patellar component was then cemented down and secured with clamp. Excess methylmethacrylate removed. We kept the knee in full extension, patellar clamp in position until methylmethacrylate had hardened. Once it had hardened the patellar clamp was removed. The knee was taken through full range of motion. The patella tracked nicely. There was good soft tissue balancing. The tourniquet was now released. Additional hemostasis was achieved via electrocautery. A second gram of TXA was given. The wound again was irrigated with pulse lavage mechanical irrigation. The superficial soft tissues were infiltrated local analgesic. The extensor mechanism was repaired with Vicryl. We checked the repair with range of motion and it was stable. The subcutaneous soft tissues were repaired with Vicryl in layers. The skin was approximated with skin krista. Sterile dressings were applied followed by loose web roll and Gary bandage. The patient was transferred to a bed, and taken to recovery in stable and satisfactory condition. Sander HALL assisted with this complex procedure.
--- NOTE | 2018-12-06 19:39 | XR ---
EXAMINATION TYPE: XR knee limited LT DATE OF EXAM: 12/06/2018 COMPARISON: NONE HISTORY: Postop TECHNIQUE: 2 views FINDINGS: There is a left knee prosthesis. Components are in anatomic position. There are anterior sk in krista. IMPRESSION: No complicating process seen.
[2018-12-06] MEDS ORDERED: glipiZIDE 5 MG TAB PO PRN (20:01)
[2018-12-06] MEDS ORDERED: POTASSIUM CHLORIDE ER 10 MEQ TAB.ER.PRT PO PRN (20:01)
[2018-12-06] MEDS ORDERED: FUROSEMIDE 40 MG TAB PO PRN (20:01)
[2018-12-06] MEDS ORDERED: IPRATROPIUM-ALBUTEROL 3 ML NEB INHALATION PRN (20:04)
[2018-12-06 20:44] LABS: Glucose,Whole Blood 209 mg/dL (75-99)
[2018-12-06] MEDS ORDERED: SYMBICORT 80-4.5 MCG INHALER INHALATION SCH (21:00)
[2018-12-06] MEDS: HYDROmorphone 0.5 MG/0.5 ML SYRINGE IVP PRN (21:50)
[2018-12-06] MEDS: SENNOSIDES-DOCUSATE SODIUM 1 EACH TAB PO SCH (21:52)
[2018-12-06] MEDS: ATORVASTATIN 20 MG TAB PO SCH (21:52)
[2018-12-06] MEDS: DIAZEPAM 5 MG TAB PO PRN (21:52)
[2018-12-06] MEDS: FLUoxetine HCL 20 MG CAP PO SCH (21:52)
[2018-12-06] MEDS: HYDROcodone/APAP 10-325MG 1 EACH TAB PO PRN (23:20)
[2018-12-07] MEDS: LACTATED RINGERS 1,000 ML IV SCH ×3 (02:08→15:33)
[2018-12-07] MEDS: HYDROmorphone 0.5 MG/0.5 ML SYRINGE IVP PRN (02:09)
[2018-12-07 03:40] VITALS: BMI 91.9
[2018-12-07] MEDS: HYDROcodone/APAP 10-325MG 1 EACH TAB PO PRN ×3 (05:29→20:14)
[2018-12-07] MEDS: ENOXAPARIN 30 MG/0.3 ML SYRINGE SQ SCH ×2 (05:32→17:16)
[2018-12-07 06:46] LABS: Glucose,Whole Blood 210 mg/dL (75-99)
[2018-12-07 07:21] LABS: Basophils % (A) 0 %; Eosinophils # (A) 0.1 k/uL (0-0.7); Eosinophils % (A) 1 %; HGB 10.2 gm/dL (11.4-16.0); Hypochromasia Slight; Lymphocytes # (A) 0.9 k/uL (1.0-4.8); Lymphocytes % (A) 8 %; MCV 96.8 fL (80.0-100.0); Mean Platelet Volume 6.9; Monocytes # (A) 0.6 k/uL (0-1.0); Monocytes % (A) 5 %; Neutrophils # (A) 9.8 k/uL (1.3-7.7); Neutrophils % (A) 86 %; Platelet Count 291 k/uL (150-450); RBC 3.41 m/uL (3.80-5.40); WBC 11.4 k/uL (3.8-10.6)
[2018-12-07] MEDS: PANTOPRAZOLE 40 MG TABLET PO SCH (07:49)
[2018-12-07] MEDS: CYANOCOBALAMIN 500 MCG TAB PO SCH (07:50)
[2018-12-07] MEDS: MELOXICAM 7.5 MG TAB PO SCH (07:50)
[2018-12-07] MEDS: CHOLECALCIFEROL 1,000 UNIT TAB PO SCH (07:50)
--- NOTE | 2018-12-07 08:18 | P.PN ---
Progress Note - Text 12/07 730am 53-year-old female status post total knee replacement by Dr. Hawk. Patient has an On-Q pump for postop pain control with solution running at 7 mL an hour with a pain score of 4. Plan to continue On-Q pump infusion
[2018-12-07] MEDS: HYDROmorphone 1 MG/ML 1 ML SYRINGE IVP PRN ×3 (10:36→18:42)
[2018-12-07] MEDS: DIAZEPAM 5 MG TAB PO PRN ×2 (10:36→17:16)
[2018-12-07 11:47] LABS: Glucose,Whole Blood 87 mg/dL (75-99)
--- NOTE | 2018-12-07 12:48 | P.PN ---
Subjective Progress Note Date: 12/07/18 Principal diagnosis: status post left total knee arthroplasty Patient evaluated at bedside today, she is hemorrhage present. She admits to discomfort with the right knee. She has required an increase in her IV pain medication. She's ambulated very minimally with therapy at this time. They've also increased her On-Q pain pump at this time. Denies any chest pain or shortness of breath at this time. Objective - Vital Signs Vital signs: Vital Signs Temp 97.5 F L 12/07/18 07:19 Pulse 80 12/07/18 07:19 Resp 16 12/07/18 04:00 BP 101/63 12/07/18 07:19 Pulse Ox 92 L 12/07/18 07:19 Intake & Output 12/06/18 12/07/18 12/07/18 18:59 06:59 18:59 Intake Total 2151 200 Output Total 50 Balance 2100 200 Intake: IV 2150 200 Output: Estimated Blood Loss 50 Other: Voiding Method Bedpan Diaper Incontinent - Exam Left lower extremity: Incision is clean, dry, and intact. The krista is in good condition. There is minimal soft tissue swelling and ecchymosis surrounding the medial and lateral aspects of the incision. Calf is soft, no tenderness with palpation. Plantar flexion, dorsiflexion, EHL, FHL are intact. Sensory exam to light touch throughout the extremity is intact, dorsal pedis pulses 2+. - Labs CBC & Chem 7: 12/07/18 06:24 Labs: Abnormal Lab Results - Last 24 Hours (Table) 12/06/18 12/06/18 12/07/18 Range/Units 15:01 20:42 06:24 WBC 11.4 H (3.8-10.6) k/uL RBC 3.41 L (3.80-5.40) m/uL Hgb 10.2 L (11.4-16.0) gm/dL Hct 33.0 L (34.0-46.0) % Neutrophils # 9.8 H (1.3-7.7) k/uL Lymphocytes # 0.9 L (1.0-4.8) k/uL POC Glucose (mg/dL) 114 H 209 H (75-99) mg/dL 12/07/18 Range/Units 06:45 WBC (3.8-10.6) k/uL RBC (3.80-5.40) m/uL Hgb (11.4-16.0) gm/dL Hct (34.0-46.0) % Neutrophils # (1.3-7.7) k/uL Lymphocytes # (1.0-4.8) k/uL POC Glucose (mg/dL) 210 H (75-99) mg/dL Assessment and Plan Plan: Assessment: Postoperative day #1 status post left total knee arthroplasty Plan: Pain control, they have increased her IV pain medication dose. We'll also increase oral pain medication at this time. GI and DVT prophylaxis, continue current medication Daily dressing changes/ice and elevate Continue with physical therapy and use of CPM Medical recommendations Discharge planning: Patient has been made inpatient at this time, hopeful discharge in the next day or 2. Time with Patient: Less than 30
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
[2018-12-07 16:50] LABS: Glucose,Whole Blood 67 mg/dL (75-99)
[2018-12-07 17:21] LABS: Glucose,Whole Blood 110 mg/dL (75-99)
[2018-12-07] MEDS: FLUoxetine HCL 20 MG CAP PO SCH (20:14)
[2018-12-07] MEDS: SENNOSIDES-DOCUSATE SODIUM 1 EACH TAB PO SCH (20:14)
[2018-12-07] MEDS: ATORVASTATIN 20 MG TAB PO SCH (20:14)
[2018-12-07 21:03] LABS: Glucose,Whole Blood 126 mg/dL (75-99)
[2018-12-08] MEDS: HYDROmorphone 1 MG/ML 1 ML SYRINGE IVP PRN ×3 (00:23→13:19)
[2018-12-08] MEDS: LACTATED RINGERS 1,000 ML IV SCH ×5 (02:52→21:42)
[2018-12-08] MEDS: HYDROcodone/APAP 10-325MG 1 EACH TAB PO PRN ×3 (04:35→17:57)
[2018-12-08] MEDS: ENOXAPARIN 30 MG/0.3 ML SYRINGE SQ SCH ×2 (04:36→17:57)
[2018-12-08] MEDS: DIAZEPAM 5 MG TAB PO PRN ×2 (04:44→18:01)
[2018-12-08 07:27] LABS: Glucose,Whole Blood 174 mg/dL (75-99)
[2018-12-08] MEDS: PANTOPRAZOLE 40 MG TABLET PO SCH (08:43)
[2018-12-08] MEDS: CHOLECALCIFEROL 1,000 UNIT TAB PO SCH (08:43)
[2018-12-08] MEDS: CYANOCOBALAMIN 500 MCG TAB PO SCH (08:44)
[2018-12-08] MEDS: MELOXICAM 7.5 MG TAB PO SCH (08:44)
--- NOTE | 2018-12-08 11:02 | P.PN ---
Subjective Progress Note Date: 12/08/18 Principal diagnosis: status post left total knee arthroplasty Patient evaluated at bedside today. Patient continues to have discomfort that requires IV pain medication. She's ambulated very minimally with therapy at this time. Denies any chest pain or shortness of breath at this time. Objective - Vital Signs Vital signs: Vital Signs Temp 99.3 F 12/08/18 07:00 Pulse 123 H 12/08/18 07:00 Resp 16 12/08/18 07:00 BP 91/60 12/08/18 07:00 Pulse Ox 90 L 12/08/18 07:00 Intake & Output 12/07/18 12/08/18 12/08/18 18:59 06:59 18:59 Intake Total 1000 240 Balance 1000 240 Intake: Oral 1000 240 Other: Voiding Method Toilet Toilet Bedpan Bedside Commode Diaper Bedpan Incontinent Diaper Incontinent # Voids 3 2 - Exam Left lower extremity: Incision is clean, dry, and intact. The krista is in good condition. There is minimal soft tissue swelling and ecchymosis surrounding the medial and lateral aspects of the incision. Calf is soft, no tenderness with palpation. Plantar flexion, dorsiflexion, EHL, FHL are intact. Sensory exam to light touch throughout the extremity is intact, dorsal pedis pulses 2+. - Labs CBC & Chem 7: 12/07/18 06:24 Labs: Abnormal Lab Results - Last 24 Hours (Table) 12/07/18 12/07/18 12/07/18 Range/Units 16:49 17:19 21:01 POC Glucose (mg/dL) 67 L 110 H 126 H (75-99) mg/dL 12/08/18 Range/Units 07:24 POC Glucose (mg/dL) 174 H (75-99) mg/dL Assessment and Plan Plan: Assessment: Postoperative day #2 status post left total knee arthroplasty Plan: Pain control, did increase her oral pain medication. Advised patient to avoid IV pain medication GI and DVT prophylaxis, continue current medication Daily dressing changes/ice and elevate Continue with physical therapy and use of CPM Medical recommendations Discharge planning: With patients lack of activity at this time, patient will likely require rehab placement. Planning for discharge to rehab in the next day or 2. Time with Patient: Less than 30
[2018-12-08 11:19] LABS: Glucose,Whole Blood 130 mg/dL (75-99)
--- NOTE | 2018-12-08 12:00 | XR ---
EXAMINATION TYPE: XR chest 1V DATE OF EXAM: 12/08/2018 COMPARISON: NONE HISTORY: ECF placement. No current complaints. TECHNIQUE: Single frontal view of the chest is obtained. FINDINGS: There is an enlarged cardiomediastinal silhouette. Eventration of the right hemidiaphragm is seen. No pulmonary vascular congestion. There is mild diffuse osseous demineralization and minimal degenerative changes of the spine and acromio clavicular joints. There is tortuosity of the descendi ng thoracic aorta. IMPRESSION: Enlarged cardiomediastinal silhouette and tortuosity of the descending thoracic aorta. N o acute pulmonary pathology. No priors for comparison of stability in size of the heart.
--- NOTE | 2018-12-08 12:21 | P.PN ---
Subjective 58-year-old admitted with for left knee (axis underwent surgery patient is clinically doing well except for blood pressure is low normal with increased heart rate hydrating was increased because of low blood pressure as well as because of pain patient was started on IV fluids check chest x-ray because her also and saturations are 90% on room air chest x-ray did not show any acute process no pulmonary edema. Constitutional: Denied any fatigue denied any fever. Cardio vascular: denied any chest pain, palpitations Gastrointestinal denied any nausea vomiting Pulmonary: Denied any shortness of breath cough Neurologic denied any new focal deficits All inpatient medications were reviewed and appropriate changes in these medications as dictated in the interval history and assessment and plan. Objective - Vital Signs Vital signs: Vital Signs Temp 99.3 F 12/08/18 07:00 Pulse 123 H 12/08/18 07:00 Resp 16 12/08/18 07:00 BP 91/60 12/08/18 07:00 Pulse Ox 90 L 12/08/18 07:00 Intake & Output 12/07/18 12/08/18 12/08/18 18:59 06:59 18:59 Intake Total 1000 240 Balance 1000 240 Intake: Oral 1000 240 Other: Voiding Method Toilet Toilet Toilet Bedpan Bedside Commode Bedside Commode Diaper Bedpan Bedpan Incontinent Diaper Diaper Incontinent Incontinent # Voids 3 2 - Exam PHYSICAL EXAMINATION: GENERAL: The patient is alert and oriented x3, not in any acute distress. Well developed, well nourished. HEENT: Pupils are round and equally reacting to light. EOMI. No scleral icterus. No conjunctival pallor. Normocephalic, atraumatic. No pharyngeal erythema. No thyromegaly. CARDIOVASCULAR: S1 and S2 present. No murmurs, rubs, or gallops. PULMONARY: Chest is clear to auscultation, no wheezing or crackles. ABDOMEN: Soft, nontender, nondistended, normoactive bowel sounds. No palpable organomegaly. MUSCULOSKELETAL: Left knee is post surgically packed patient has ice packs left knee right hip and back EXTREMITIES: No cyanosis, clubbing, or pedal edema. NEUROLOGICAL: Gross neurological examination did not reveal any focal deficits. SKIN: No rashes. - Labs CBC & Chem 7: 12/07/18 06:24 Labs: Abnormal Lab Results - Last 24 Hours (Table) 12/07/18 12/07/18 12/07/18 Range/Units 16:49 17:19 21:01 POC Glucose (mg/dL) 67 L 110 H 126 H (75-99) mg/dL 12/08/18 12/08/18 Range/Units 07:24 11:18 POC Glucose (mg/dL) 174 H 130 H (75-99) mg/dL Assessment and Plan Plan: -Leukocytosis reactive without any evidence of infection no further testing is necessary. Patient received preoperative antibiotics -COPD without any acute exacerbation continued present medications -Type 2 diabetes mellitus with uncontrolled elevated blood sugars can use sliding scale and home regimen. Gastroesophageal reflux disease next and #10 hyperlipidemia -Chronic low back pain -Left knee arthroplasty pain management DVT prophylaxis per primary service
[2018-12-08 12:45] LABS: Calcium 8.8 mg/dL (8.4-10.2); Potassium 4.2 mmol/L (3.5-5.1)
[2018-12-08 14:04] LABS: Hemoglobin A1C 6.8 % (4.0-6.0)
--- NOTE | 2018-12-08 15:01 | CDI ---
Documentation Clarification Form Date: 12/08/2018 2:10:29 PM From: Rocío Christianson RN CCDS Admit Date: 12/07/2018 12:46:00 PM Patient Name: Luz Alfaro Visit Number: [id number] Discharge Date: ATTENTION: The Clinical Documentation Specialists (CDI) and [facility] Coding Staff appreciate your assistance in clarifying documentation. Please respond to the clarification below the line at the bottom and electronically sign. The CDI & [facility] Coding staff will review the response and follow-up if needed. Please note: Queries are made part of the Legal Health Record. If you have any questions, please contact the author of this message via ITS. Dr. Lm Hawk The patients principal diagnosis has not been clearly identified and requires clarification. 63 year old female presents to [facility] for an elective left total knee arthroplasty on 12/06/2018 as Outpatient. On 12/07/2018 The patient was made in patient. History/Risk factors: medical history Asthma, COPD, DM2, GERD, OA, Renal disease, Neck/back and shoulder pain. Clinical Indicators: Per pn 12/08 Discharge planning: with patients lack of activity at this time, patient will likely require rehab placement . planning for discharge to rehab in the next day or two. Lab findings: Wbc 11.4, hgb 10.2 Vital Signs: 101/63 80 97.5 75 92% ra Treatment: home and inpt med [place] 10/325, home and inpt med Valium, Inpt med Dialudid ivp, inpt med On Q pump, Consults: Internal medicine The reason for admission is unclear after study please specify reason for in patient admission (Please specify)_patients lack of being able to ambulaterehab placement (Last Revision: July 2017) MTDD
[2018-12-08 16:17] LABS: Glucose,Whole Blood 187 mg/dL (75-99)
[2018-12-08 20:09] LABS: Glucose,Whole Blood 200 mg/dL (75-99)
[2018-12-08] MEDS: HYDROmorphone 0.5 MG/0.5 ML SYRINGE IVP PRN (21:40)
[2018-12-08] MEDS: SENNOSIDES-DOCUSATE SODIUM 1 EACH TAB PO SCH (21:41)
[2018-12-08] MEDS: FLUoxetine HCL 20 MG CAP PO SCH (21:41)
[2018-12-08] MEDS: ATORVASTATIN 20 MG TAB PO SCH (21:41)
[2018-12-08 21:45] LABS: Glucose,Whole Blood 266 mg/dL (75-99)
[2018-12-09] MEDS: HYDROcodone/APAP 10-325MG 1 EACH TAB PO PRN ×3 (02:23→12:43)
[2018-12-09] MEDS: LACTATED RINGERS 1,000 ML IV SCH ×3 (03:49→07:36)
[2018-12-09] MEDS: ENOXAPARIN 30 MG/0.3 ML SYRINGE SQ SCH (07:12)
[2018-12-09 07:26] LABS: Glucose,Whole Blood 120 mg/dL (75-99)
[2018-12-09] MEDS: PANTOPRAZOLE 40 MG TABLET PO SCH (07:36)
[2018-12-09] MEDS: MELOXICAM 7.5 MG TAB PO SCH (07:37)
[2018-12-09] MEDS: CYANOCOBALAMIN 500 MCG TAB PO SCH (07:37)
[2018-12-09] MEDS: CHOLECALCIFEROL 1,000 UNIT TAB PO SCH (07:37)
[2018-12-09 08:02] VITALS: BP 125/78; PULSE 99; RESP 17; TEMP 98.8
[2018-12-09 08:24] LABS: Basophils % (A) 0 %; Eosinophils # (A) 0.2 k/uL (0-0.7); Eosinophils % (A) 2 %; HCT 29.9 % (34.0-46.0); HGB 9.2 gm/dL (11.4-16.0); Hypochromasia Moderate; Lymphocytes # (A) 1.9 k/uL (1.0-4.8); Lymphocytes % (A) 24 %; MCH 29.6 pg (25.0-35.0); MCHC 30.9 g/dL (31.0-37.0); MCV 95.9 fL (80.0-100.0); Mean Platelet Volume 6.8; Monocytes # (A) 0.6 k/uL (0-1.0); Monocytes % (A) 8 %; Neutrophils % (A) 64 %; Platelet Count 265 k/uL (150-450); RBC 3.12 m/uL (3.80-5.40); RDW 14.2 % (11.5-15.5); WBC 7.9 k/uL (3.8-10.6)
[2018-12-09 08:35] LABS: Calcium 8.4 mg/dL (8.4-10.2); Potassium 4.2 mmol/L (3.5-5.1)
[2018-12-09 11:24] LABS: Glucose,Whole Blood 196 mg/dL (75-99)
--- NOTE | 2018-12-09 12:14 | P.PN ---
Subjective Progress Note Date: 12/09/18 Principal diagnosis: status post left total knee arthroplasty Patient evaluated at bedside today. Patient notes a significant improvement in pain today. She's ambulated better with therapy. Denies any chest pain or shortness of breath at this time. Objective - Vital Signs Vital signs: Vital Signs Temp 98.8 F 12/09/18 07:00 Pulse 99 12/09/18 07:00 Resp 17 12/09/18 07:00 BP 125/78 12/09/18 07:00 Pulse Ox 91 L 12/09/18 07:00 Intake & Output 12/08/18 12/09/18 12/09/18 18:59 06:59 18:59 Intake Total 180 Balance 180 Intake: Oral 180 Other: Voiding Method Toilet Toilet Toilet Bedside Commode Bedside Commode Bedside Commode Bedpan Bedpan Bedpan Diaper Diaper Diaper Incontinent Incontinent Incontinent # Voids 3 1 - Exam Left lower extremity: Incision is clean, dry, and intact. The krista is in good condition. There is minimal soft tissue swelling and ecchymosis surrounding the medial and lateral aspects of the incision. Calf is soft, no tenderness with palpation. Plantar flexion, dorsiflexion, EHL, FHL are intact. Sensory exam to light touch throughout the extremity is intact, dorsal pedis pulses 2+. - Labs CBC & Chem 7: 12/09/18 06:58 12/09/18 06:58 Labs: Abnormal Lab Results - Last 24 Hours (Table) 12/07/18 12/08/18 12/08/18 Range/Units 06:24 11:41 16:15 RBC (3.80-5.40) m/uL Hgb (11.4-16.0) gm/dL Hct (34.0-46.0) % MCHC (31.0-37.0) g/dL Glucose 130 H (74-99) mg/dL POC Glucose (mg/dL) 187 H (75-99) mg/dL Hemoglobin A1c 6.8 H (4.0-6.0) % 12/08/18 12/08/18 12/09/18 Range/Units 20:07 21:33 06:58 RBC 3.12 L (3.80-5.40) m/uL Hgb 9.2 L (11.4-16.0) gm/dL Hct 29.9 L (34.0-46.0) % MCHC 30.9 L (31.0-37.0) g/dL Glucose (74-99) mg/dL POC Glucose (mg/dL) 200 H 266 H (75-99) mg/dL Hemoglobin A1c (4.0-6.0) % 12/09/18 12/09/18 12/09/18 Range/Units 06:58 07:24 11:23 RBC (3.80-5.40) m/uL Hgb (11.4-16.0) gm/dL Hct (34.0-46.0) % MCHC (31.0-37.0) g/dL Glucose 103 H (74-99) mg/dL POC Glucose (mg/dL) 120 H 196 H (75-99) mg/dL Hemoglobin A1c (4.0-6.0) % Assessment and Plan Plan: Assessment: Postoperative day #3 status post left total knee arthroplasty Plan: Pain control, she will resume her to prescribe narcotic medication as needed GI and DVT prophylaxis, aspirin 81 mg twice a day Daily dressing changes/ice and elevate Continue with physical therapy and use of CPM Medical recommendations Discharge planning: With patient's improvement in overall symptom and activity level, plan for discharge home todays Time with Patient: Less than 30
--- NOTE | 2018-12-09 12:19 | P.DS ---
Providers Date of admission: 12/06/2018 Expected date of discharge: 12/09/18 Attending physician: Lm Hawk Consults: 12/06/18 18:29 Consult Physician Routine Consulting Provider: Oli Bryant Consult Reason/Comments: Medical management Do you want consulting provider notified?: Yes Primary care physician: Leyla Nicholson Hospital Course: Date of admission: 12/06/2018 Date of discharge: 12/09/2018 Admission diagnosis: Status post left total knee arthroplasty Discharge diagnosis: Same Attending physician: Dr. Hawk Surgical procedures: Left total knee arthroplasty Brief history: Patient is a 63-year-old female with a history of progressive primary left knee osteoarthritis. At this point patient has failed conservative treatment measures and has opted to proceed with a elective left total knee arthroplasty. Hospital course: Details of patient's surgery can be found in operative report. Patient tolerated the procedure well and was subsequently transported to orthopedic floor. Patient's orthopeidc and medical care was provided daily. Patient had daily laboratory tests performed for evaluation of overall blood counts. Patient had daily physical therapy to include strengthening range of motion as well as education with walker ambulation. Patient had daily CPM usage as part of their physical therapy program. Patient was treated with Lovenox for their postoperative DVT prophylaxis during their inpatient stay. Patient was noted to have a relatively uneventful postoperative course. Patient reported satisfactory pain control with oral pain medications by postoperative day 0. Patient showed satisfactory progress with physical therapy. Patient moved steadily through the program and had no difficulty meeting the goals by postoperative day 3. Given patient's otherwise satisfactory course and having met physical therapy goals, plan is to discharge patient home on postoperative day 3. Discharge condition/disposition: Patient will be discharged home in stable condition. Discharge medications: Instructions are given on resumption of patient's normal daily medications per primary care recommendation, in addition patient will be prescribed Eliquis 2.5mg. Discharge instructions: 1. Wound care and infection precautions, keep incision dry and covered while showering, no lotions, creams, moisturizers. No soaking, tubs, pools, hottubs. Do not scrub over the incision. 2. Weight-bear as tolerated with walker / cane until follow-up. 3. Ice and elevate when necessary. Do not exceed 20 minutes per hour with ice pack. 4. Utilize compression sleeve until seen at first follow up appointment. 5. Visiting nursing care. 6. Home physical therapy including home CPM. 7. Pain meds and anticoagulants per prescription. 8. Pain medication has potential to cause constipation. Increase oral fluid and fiber intake. Contact primary care provider if you have not had a bowel movement within 48 hours after discharge 9. No anti-inflammatory medication until discussed at first post operative visit, this including Motrin, Aleve, Mobic, Diclofenac. 10. Follow up in office at 2 weeks postop with Sander Grace PA-C 11. Follow up with your primary care doctor 7-10 days after discharge. 12. Contact [facility] with any questions, . Procedures: Left total knee arthroplasty Patient Condition at Discharge: Good Plan - Discharge Summary Discharge Rx Participant: No New Discharge Prescriptions: New Apixaban [Eliquis] 2.5 mg PO BID #60 tab No Action Diazepam [Valium] 5 mg PO TID PRN PRN Reason: Anxiety Simvastatin [Zocor] 40 mg PO HS Potassium Chloride [Klor-Con 10] 10 meq PO DAILY PRN PRN Reason: leg cramps HYDROcodone/APAP 10-325MG [[place] 10-325] 1 tab PO Q6H PRN PRN Reason: Pain Budesonide/Formoterol Fumarate [Symbicort 80-4.5 Mcg Inhaler] 1 puff INHALATION BID Albuterol Inhaler [Ventolin Hfa Inhaler] 1 - 2 puff INHALATION Q6HR PRN PRN Reason: Shortness Of Breath Furosemide [Lasix] 40 mg PO DAILY PRN PRN Reason: Edema FLUoxetine HCL [PROzac] 40 mg PO HS glipiZIDE [Glucotrol] 5 mg PO AC-BRKFST PRN PRN Reason: blood sugar 149 or above Vitamin C/Biotin [Hair, Skin and Nails] 1 tab PO DAILY Wheat Dextrin [Benefiber] 1 each PO DAILY PRN PRN Reason: Constipation Cholecalciferol [Vitamin D3] 2,000 unit PO DAILY Cyanocobalamin [Vitamin B-12] 500 mcg PO DAILY Omeprazole 40 mg PO QAM Docusate Sodium [Dok] 100 mg PO DAILY PRN PRN Reason: Constipation Multivitamin [Multivitamins Adult Gummies] 2 each PO DAILY Discharge Medication List Diazepam [Valium] 5 mg PO TID PRN 09/01/14 [History] Potassium Chloride [Klor-Con 10] 10 meq PO DAILY PRN 12/26/13 [History] Simvastatin [Zocor] 40 mg PO HS 12/26/13 [History] HYDROcodone/APAP 10-325MG [[place] 10-325] 1 tab PO Q6H PRN 05/13/16 [History] Albuterol Inhaler [Ventolin Hfa Inhaler] 1 - 2 puff INHALATION Q6HR PRN 11/14/16 [History] Budesonide/Formoterol Fumarate [Symbicort 80-4.5 Mcg Inhaler] 1 puff INHALATION BID 11/14/16 [History] FLUoxetine HCL [PROzac] 40 mg PO HS 01/21/18 [History] Furosemide [Lasix] 40 mg PO DAILY PRN 01/21/18 [History] Vitamin C/Biotin [Hair, Skin and Nails] 1 tab PO DAILY 01/21/18 [History] Wheat Dextrin [Benefiber] 1 each PO DAILY PRN 01/21/18 [History] glipiZIDE [Glucotrol] 5 mg PO AC-BRKFST PRN 01/21/18 [History] Cholecalciferol [Vitamin D3] 2,000 unit PO DAILY 06/01/18 [History] Cyanocobalamin [Vitamin B-12] 500 mcg PO DAILY 06/01/18 [History] Omeprazole 40 mg PO QAM 06/01/18 [History] Docusate Sodium [Dok] 100 mg PO DAILY PRN 11/29/18 [History] Multivitamin [Multivitamins Adult Gummies] 2 each PO DAILY 11/29/18 [History] Apixaban [Eliquis] 2.5 mg PO BID #60 tab 12/09/18 [Rx] Follow up Appointment(s)/Referral(s): [facility] [NON-STAFF] - [facility], [NON-STAFF] - Carlton Grace PAC [PHYSICIAN B[employer]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 Wound care and infection precautions, keep incision dry and covered while showering, no lotions, creams, moisturizers. No soaking, pools, hot tubs. Do not scrub over incision. 2. Weight-bear as tolerated with walker / cane until follow-up. 3. Ice and elevate when necessary. Do not exceed 20 minutes per hour with ice pack. 4. Utilize compression sleeve until seen at first follow up appointment. 5. Pain meds and anticoagulants per prescription. 6. Pain medication has potential to cause constipation. Increase oral fluid and fiber intake. Contact primary care provider if you have not had a bowel movement within 48 hours after discharge. 7. No anti-inflammatory medication until discussed at first post operative visit, this including Motrin, Aleve, Mobic, Diclofenac. 8. Follow up in office at 2 weeks postop with Sander Grace PA-C 9. Follow up with your primary care doctor 7-10 days after discharge. 10. Contact [facility] with any questions, . Discharge Disposition: HOME WITH HOME HEALTH SERVICES
--- NOTE | 2018-12-09 12:55 | P.PN ---
Subjective 58-year-old admitted with for left knee (axis underwent surgery patient is clinically doing well except for blood pressure is low normal with increased heart rate hydrating was increased because of low blood pressure as well as because of pain patient was started on IV fluids check chest x-ray because her also and saturations are 90% on room air chest x-ray did not show any acute process no pulmonary edema. 12/09/2018 No overnight events patient is feeling better can be discharged from medical perspective IV fluids were discontinued Constitutional: Denied any fatigue denied any fever. Cardio vascular: denied any chest pain, palpitations Gastrointestinal denied any nausea vomiting Pulmonary: Denied any shortness of breath cough Neurologic denied any new focal deficits All inpatient medications were reviewed and appropriate changes in these medications as dictated in the interval history and assessment and plan. Objective - Vital Signs Vital signs: Vital Signs Temp 98.8 F 12/09/18 07:00 Pulse 99 12/09/18 07:00 Resp 17 12/09/18 07:00 BP 125/78 12/09/18 07:00 Pulse Ox 91 L 12/09/18 07:00 Intake & Output 12/08/18 12/09/18 12/09/18 18:59 06:59 18:59 Intake Total 180 Balance 180 Intake: Oral 180 Other: Voiding Method Toilet Toilet Toilet Bedside Commode Bedside Commode Bedside Commode Bedpan Bedpan Bedpan Diaper Diaper Diaper Incontinent Incontinent Incontinent # Voids 3 1 - Exam PHYSICAL EXAMINATION: GENERAL: The patient is alert and oriented x3, not in any acute distress. Well developed, well nourished. HEENT: Pupils are round and equally reacting to light. EOMI. No scleral icterus. No conjunctival pallor. Normocephalic, atraumatic. No pharyngeal erythema. No thyromegaly. CARDIOVASCULAR: S1 and S2 present. No murmurs, rubs, or gallops. PULMONARY: Chest is clear to auscultation, no wheezing or crackles. ABDOMEN: Soft, nontender, nondistended, normoactive bowel sounds. No palpable organomegaly. MUSCULOSKELETAL: Left knee is post surgically packed patient has ice packs left knee right hip and back EXTREMITIES: No cyanosis, clubbing, or pedal edema. NEUROLOGICAL: Gross neurological examination did not reveal any focal deficits. SKIN: No rashes. - Labs CBC & Chem 7: 12/09/18 06:58 12/09/18 06:58 Labs: Abnormal Lab Results - Last 24 Hours (Table) 12/07/18 12/08/18 12/08/18 Range/Units 06:24 16:15 20:07 RBC (3.80-5.40) m/uL Hgb (11.4-16.0) gm/dL Hct (34.0-46.0) % MCHC (31.0-37.0) g/dL Glucose (74-99) mg/dL POC Glucose (mg/dL) 187 H 200 H (75-99) mg/dL Hemoglobin A1c 6.8 H (4.0-6.0) % 12/08/18 12/09/18 12/09/18 Range/Units 21:33 06:58 06:58 RBC 3.12 L (3.80-5.40) m/uL Hgb 9.2 L (11.4-16.0) gm/dL Hct 29.9 L (34.0-46.0) % MCHC 30.9 L (31.0-37.0) g/dL Glucose 103 H (74-99) mg/dL POC Glucose (mg/dL) 266 H (75-99) mg/dL Hemoglobin A1c (4.0-6.0) % 12/09/18 12/09/18 Range/Units 07:24 11:23 RBC (3.80-5.40) m/uL Hgb (11.4-16.0) gm/dL Hct (34.0-46.0) % MCHC (31.0-37.0) g/dL Glucose (74-99) mg/dL POC Glucose (mg/dL) 120 H 196 H (75-99) mg/dL Hemoglobin A1c (4.0-6.0) % Assessment and Plan Plan: -Leukocytosis reactive without any evidence of infection no further testing is necessary. Patient received preoperative antibiotics, no further antibiotics are needed no further workup is necessary -COPD without any acute exacerbation continued present medications -Type 2 diabetes mellitus with uncontrolled elevated blood sugars can use sliding scale and home regimen. Gastroesophageal reflux disease #10 hyperlipidemia -Chronic low back pain -Left knee arthroplasty pain management DVT prophylaxis per primary service
== END 2018-12-09 14:31 | DRG 941 ==
LOC: OR 14:04 → 4SSUR 18:44 → OR 12-07 12:46
PROVIDERS: ADMIT Orthopaedic Surgery; ATTEND Orthopaedic Surgery
PROC: 0SRD0J9 Replacement of Left Knee Joint with Synthetic Substitute, Cemented, Open Approach (ICD-10-PCS; principal; 2018-12-06 15:45)
DX: G89.18 Other acute postprocedural pain (principal); J44.9 Chronic obstructive pulmonary disease, unspecified; M17.12 Unilateral primary osteoarthritis, left knee; D72.829 Elevated white blood cell count, unspecified; E11.9 Type 2 diabetes mellitus without complications; E78.5 Hyperlipidemia, unspecified; I10 Essential (primary) hypertension; K21.9 Gastro-esophageal reflux disease without esophagitis; D50.9 Iron deficiency anemia, unspecified; F32.9 Major depressive disorder, single episode, unspecified; F41.9 Anxiety disorder, unspecified; K44.9 Diaphragmatic hernia without obstruction or gangrene; L30.9 Dermatitis, unspecified; R32 Unspecified urinary incontinence; G89.29 Other chronic pain; M54.5 Low back pain; Z79.51 Long term (current) use of inhaled steroids; Z96.651 Presence of right artificial knee joint; Z87.891 Personal history of nicotine dependence; Z79.84 Long term (current) use of oral hypoglycemic drugs; Z79.899 Other long term (current) drug therapy; Z98.84 Bariatric surgery status; Z90.49 Acquired absence of other specified parts of digestive tract; Z88.6 Allergy status to analgesic agent; Z91.040 Latex allergy status; Z91.048 Other nonmedicinal substance allergy status; Z80.3 Family history of malignant neoplasm of breast; Z82.49 Family history of ischemic heart disease and other diseases of the circulatory system; Z83.3 Family history of diabetes mellitus
CPT/HCPCS: 71045; 80048; 83036; 85025; 88300; 94640

== ENCOUNTER 2018-12-12 09:26 | Emergency (ER) | payer MEDICARE, OTHER ==
[2018-12-12 09:35] VITALS: RESP 18; TEMP 99.3
[2018-12-12] MEDS ORDERED: SODIUM CHLORIDE 0.9% 1,000 ML IV STA (09:51)
[2018-12-12] MEDS ORDERED: MORPHINE SULFATE 4 MG/ML SYRINGE IV STA (10:05)
[2018-12-12 10:47] LABS: Basophils # (A) 0.1 k/uL (0-0.2); Basophils % (A) 1 %; Eosinophils # (A) 0.2 k/uL (0-0.7); Eosinophils % (A) 3 %; HCT 34.8 % (34.0-46.0); HGB 10.6 gm/dL (11.4-16.0); Hypochromasia Slight; Lymphocytes # (A) 1.3 k/uL (1.0-4.8); Lymphocytes % (A) 15 %; MCH 28.9 pg (25.0-35.0); MCHC 30.6 g/dL (31.0-37.0); MCV 94.4 fL (80.0-100.0); Mean Platelet Volume 6.8; Monocytes # (A) 0.5 k/uL (0-1.0); Monocytes % (A) 6 %; Neutrophils # (A) 6.3 k/uL (1.3-7.7); Neutrophils % (A) 74 %; Platelet Count 393 k/uL (150-450); RBC 3.68 m/uL (3.80-5.40); RDW 14.3 % (11.5-15.5); WBC 8.5 k/uL (3.8-10.6)
[2018-12-12 10:56] LABS: Albumin 3.6 g/dL (3.5-5.0); Calcium 9.2 mg/dL (8.4-10.2); Potassium 4.1 mmol/L (3.5-5.1); Total Bilirubin 0.5 mg/dL (0.2-1.3); Total Protein 6.9 g/dL (6.3-8.2)
--- NOTE | 2018-12-12 11:44 | XR ---
EXAMINATION TYPE: XR KUB , 2 VIEWS DATE OF EXAM ORDERED: 12/12/2018 HISTORY: abdominal pain. COMPARISON: None. FINDINGS: There is some scarring or atelectasis at the left lung base. Lungs otherwise clear. Within the abdomen, the abdominal gas pattern is within normal limits. There is no evidence of obstru ction or free air. There is an amorphous calcification in the left hemipelvis. This may relate to fib roid change. No calcifications are seen. IMPRESSION: 1. SCARRING VERSUS ATELECTASIS, LEFT LUNG BASE. 2. NONOBSTRUCTIVE ABDOMINAL GAS PATTERN.
[2018-12-12 12:04] VITALS: BP 138/68; PULSE 77
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
== END 2018-12-12 12:35 | disposition home or self-care (01) ==
LOC: EC 09:26
DX: R19.7 Diarrhea, unspecified (principal); J44.9 Chronic obstructive pulmonary disease, unspecified; E11.9 Type 2 diabetes mellitus without complications; E78.5 Hyperlipidemia, unspecified; K21.9 Gastro-esophageal reflux disease without esophagitis; F41.9 Anxiety disorder, unspecified; F32.9 Major depressive disorder, single episode, unspecified; Z79.51 Long term (current) use of inhaled steroids; Z79.84 Long term (current) use of oral hypoglycemic drugs; Z79.899 Other long term (current) drug therapy; Z91.040 Latex allergy status; Z88.6 Allergy status to analgesic agent; Z91.048 Other nonmedicinal substance allergy status; Z98.84 Bariatric surgery status; Z96.652 Presence of left artificial knee joint; Z87.891 Personal history of nicotine dependence
CPT/HCPCS: 36415; 80053; 83605; 83690; 85025; 87324; 87045; 87046; 74018; 99284; 96374; 96361; J2270

== ENCOUNTER 2019-03-25 12:54 | Emergency (ER) | payer OTHER, MEDICARE ==
[2019-03-25 13:03] VITALS: BP 145/79; PULSE 67; RESP 16; TEMP 98
[2019-03-25] MEDS ORDERED: LIDOCAINE 5% PATCH TOPICAL STA (13:35)
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
--- NOTE | 2019-03-25 13:55 | XR ---
EXAMINATION TYPE: XR ribs RT w pa chest xray DATE OF EXAM: 03/25/2019 COMPARISON: NONE HISTORY: Pain TECHNIQUE: Single view of the chest 4 views of the ribs are submitted. FINDINGS: The lungs are clear. No Evidence for pneumothorax. No evidence for focal contusion. Medi astinal structures are midline. Evaluation of the ribs fails to demonstrate evidence for displaced r ib fracture or secondary sign of rib fracture. IMPRESSION: Negative study
== END 2019-03-25 14:31 | disposition home or self-care (01) ==
LOC: EC 12:54
DX: S29.011A Strain of muscle and tendon of front wall of thorax, initial encounter (principal); J44.9 Chronic obstructive pulmonary disease, unspecified; E11.9 Type 2 diabetes mellitus without complications; K21.9 Gastro-esophageal reflux disease without esophagitis; E78.5 Hyperlipidemia, unspecified; F41.9 Anxiety disorder, unspecified; F32.9 Major depressive disorder, single episode, unspecified; M19.90 Unspecified osteoarthritis, unspecified site; Z79.84 Long term (current) use of oral hypoglycemic drugs; Z79.899 Other long term (current) drug therapy; Z87.891 Personal history of nicotine dependence; Z91.040 Latex allergy status; Z88.6 Allergy status to analgesic agent; Z88.8 Allergy status to other drugs, medicaments and biological substances; Z90.49 Acquired absence of other specified parts of digestive tract; Z96.653 Presence of artificial knee joint, bilateral; Z98.84 Bariatric surgery status; V43.52XA Car driver injured in collision with other type car in traffic accident, initial encounter; Y92.410 Unspecified street and highway as the place of occurrence of the external cause; Y93.89 Activity, other specified
CPT/HCPCS: 99284

== ENCOUNTER → 2020-09-03 | Outpatient (CLI) | payer MEDICARE, OTHER ==
[2020-09-03 15:11] VITALS: BP 144/74; PULSE 82; TEMP 98.2; BMI 38.3
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
== END ==
LOC: BARWHC3 13:47
PROVIDERS: ATTEND Surgery
DX: Z09 Encounter for follow-up examination after completed treatment for conditions other than malignant neoplasm (principal); J44.9 Chronic obstructive pulmonary disease, unspecified; E11.9 Type 2 diabetes mellitus without complications; E78.5 Hyperlipidemia, unspecified; K21.9 Gastro-esophageal reflux disease without esophagitis; M19.90 Unspecified osteoarthritis, unspecified site; Z98.84 Bariatric surgery status; F41.9 Anxiety disorder, unspecified; F32.9 Major depressive disorder, single episode, unspecified; Z87.891 Personal history of nicotine dependence
CPT/HCPCS: 99211

== ENCOUNTER → 2020-09-05 | Outpatient (CLI) | payer MEDICARE, OTHER ==
[2020-09-05 20:13] LABS: HCT 40.1 % (37.2-46.3); HGB 12.3 g/dL (12.0-15.0); MCH 31.1 pg (27.0-32.0); MCHC 30.7 g/dL (32.0-37.0); MCV 101.5 fL (80.0-97.0); Mean Platelet Volume 9.6 fL (9.5-12.2); Platelet Count 354 X 10*3/uL (140-440); RBC 3.95 X 10*6/uL (4.10-5.20); RDW 12.9 % (11.5-14.5); WBC 7.45 X 10*3/uL (4.50-10.00)
[2020-09-05 22:42] LABS: % Iron Saturation 25.63 (12.00-45.00); ALT 32 U/L (8-44); AST 27 U/L (13-35); African American GFR (CKD) 54.5 (60.0-200.0); Albumin/Globulin Ratio 1.71 (1.60-3.17); Alkaline Phosphatase 76 U/L (41-126); BUN/Creat Ratio 13.33 Ratio (12.00-20.00); Calcium 8.8 mg/dL (8.7-10.3); Carbon Dioxide 27.8 mmol/L (21.6-31.8); Chloride 106 mmol/L (96-109); Globulin 2.4 g/dL (1.6-3.3); Glucose 86 mg/dL (70-110); Iron 71 ug/dL (50-170); Magnesium 2.3 mg/dL (1.5-2.4); Non-African American GFR(CKD) 47.1 (60.0-200.0); Potassium 4.8 mmol/L (3.5-5.5); Sodium 143 mmol/L (135-145); Total Bilirubin 0.3 mg/dL (0.2-1.2); Total Iron Binding Capacity 277 ug/dL (228-460); Total Protein 6.5 g/dL (6.2-8.2)
[2020-09-05 22:51] LABS: Ferritin 138.2 ng/mL (10.0-291.0)
[2020-09-06 02:28] LABS: Folate, Serum >24.0 ng/mL
[2020-09-07 09:36] LABS: Vitamin A 75 ug/dL (38-106)
== END | disposition home or self-care (01) ==
LOC: LABWHC1 12:06
PROVIDERS: ATTEND Surgery
DX: E66.01 Morbid (severe) obesity due to excess calories (principal); D50.8 Other iron deficiency anemias; E55.9 Vitamin D deficiency, unspecified; T56.894A Toxic effect of other metals, undetermined, initial encounter; K90.9 Intestinal malabsorption, unspecified; Z98.84 Bariatric surgery status
CPT/HCPCS: 36415; 80053; 82306; 82607; 82728; 82746; 83540; 83550; 83735; 84255; 84425; 84443; 84590; 84630; 85027

== ENCOUNTER → 2020-10-08 | Outpatient (CLI) | payer MEDICARE, OTHER ==
[2020-10-08 13:57] VITALS: BP 109/73; PULSE 73; RESP 18; TEMP 98.3; BMI 37.0
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
== END | disposition home or self-care (01) ==
LOC: BARWHC3 13:15
PROVIDERS: ATTEND Surgery
DX: E66.01 Morbid (severe) obesity due to excess calories (principal); K21.9 Gastro-esophageal reflux disease without esophagitis; Z68.37 Body mass index [BMI] 37.0-37.9, adult
CPT/HCPCS: 99211

== ENCOUNTER 2023-06-15 08:37 | Day surgery (SDC) | payer MEDICARE, OTHER ==
[~2023-06-15 08:37] MED LIST changes: -ACETAMINOPHEN TAB 500 MG TAB PO ONE; -HYDROmorphone 0.5 MG/0.5 ML SYRINGE IVP PRN; +LACTATED RINGERS 1,000 ML IV SCH; -LIDOCAINE 1% 20 ML VIAL (10MG/ML) FOR IV START INTRADERMA PRN; -MELOXICAM 7.5 MG TAB PO ONE; -ONDANSETRON 4 MG/2 ML VIAL IVP PRN; -SCOPOLAMINE 1.5MG/72HR PATCH TRANSDERM ONE; -TRANEXAMIC ACID 1,000 MG in SODIUM CHLORIDE 0.9% 100 ML IVPB ONE
[2023-06-15] MEDS: LACTATED RINGERS 1,000 ML IV ONE (09:04)
[2023-06-15 09:30] LABS: Glucose,Whole Blood 121 mg/dL (70-110)
[2023-06-15 09:42] VITALS: RESP 16; TEMP 98.4
[2023-06-15] MEDS ORDERED: LIDOCAINE 1% INJ 10MG/ML (20 ML MDV) ONE (10:03)
[2023-06-15] MEDS ORDERED: PROPOFOL 10 MG/ML 20 ML VIAL IV ONE (10:03)
--- NOTE | 2023-06-15 10:17 | P.OP ---
Date of Procedure: 06/15/23 Preoperative Diagnosis: Gerd Postoperative Diagnosis: Antral gastritis Procedure(s) Performed: EGD Anesthesia: MAC Surgeon: Gab Casas Pathology: other (Antrum) Condition: stable Disposition: PACU Description of Procedure: The patient was placed on the endoscopy table in the lateral position. She re ceived IV sedation. The gas was placed oropharynx passed in the esophagus and the stomach. Scope was placed through the pylorus. The first and second portion of the duodenum appeared normal. Scope was then repacked the antrum this was mild inflamed. A biopsy was performed. The scope was then retroflexed and the Mainer of the stomach appeared normal. Patient appears gastric sleeve. The gastric sleeve appeared to be mildly dilated. The GE junction was at 47. The distal esophagus appeared normal. The proximal esophagus appeared normal. The scope withdrawn for the patient.
[2023-06-15 10:44] VITALS: BP 130/76; PULSE 76
== END 2023-06-15 10:58 | disposition home or self-care (01) ==
LOC: ORWHC2ENDO 08:37
PROVIDERS: ATTEND Surgery
DX: K29.50 Unspecified chronic gastritis without bleeding (principal); J44.9 Chronic obstructive pulmonary disease, unspecified; E11.9 Type 2 diabetes mellitus without complications; M19.90 Unspecified osteoarthritis, unspecified site; E78.5 Hyperlipidemia, unspecified; K62.3 Rectal prolapse; K21.9 Gastro-esophageal reflux disease without esophagitis; Z86.2 Personal history of diseases of the blood and blood-forming organs and certain disorders involving the immune mechanism; Z98.890 Other specified postprocedural states; Z96.653 Presence of artificial knee joint, bilateral; Z79.84 Long term (current) use of oral hypoglycemic drugs; Z79.85 Long-term (current) use of injectable non-insulin antidiabetic drugs; Z79.51 Long term (current) use of inhaled steroids; Z79.899 Other long term (current) drug therapy; Z83.3 Family history of diabetes mellitus; Z80.3 Family history of malignant neoplasm of breast; Z87.442 Personal history of urinary calculi; Z88.6 Allergy status to analgesic agent; Z91.040 Latex allergy status; Z91.048 Other nonmedicinal substance allergy status
CPT/HCPCS: 88305; 43239; J2001; J2704

== ENCOUNTER → 2023-10-30 | Outpatient (CLI) | payer MEDICARE ==
--- NOTE | 2023-10-30 15:26 | FL ---
EXAMINATION TYPE: FL barium swallow DATE OF EXAM: 10/30/2023 CLINICAL INDICATION: 67-year-old female K21.00 GASTRO-ESOPHAGEAL REFLUX DIS WITH ESOPHAGIT COMPARISON: None Total Fluoroscopy Time: 1 minute 44 seconds 451.12 mGycm2 DAP 45 images obtained. FINDINGS: The patient swallowed oral contrast without difficulty or delay. There are moderate tertiary peristal tic waves with tortuous contour of the esophagus and no abnormal fixed narrowing seen. There is a moderate-sized hiatal hernia present. Allowing for single contrast technique, no abnormal filling defect or mucosal abnormality is seen. Contrast probably passes from the esophagus into the stomach. Postsurgical changes of gastrectomy is demonstrated. Only mild gastroesophageal reflux is seen to the course of the exam. IMPRESSION: 1. Moderate esophageal dysmotility. 2. A moderate sized hiatal hernia with mild gastroesophageal reflux seen. 3. Status post sleeve gastrectomy.
== END | disposition home or self-care (01) ==
LOC: RADUSWWP 08:53
PROVIDERS: ATTEND Surgery
DX: K21.00 Gastro-esophageal reflux disease with esophagitis, without bleeding (principal); K22.4 Dyskinesia of esophagus; K44.9 Diaphragmatic hernia without obstruction or gangrene; Z98.84 Bariatric surgery status
CPT/HCPCS: 74220

== ENCOUNTER → 2023-11-13 | Outpatient (CLI) | payer MEDICARE ==
[2023-11-13 15:19] LABS: Basophils # (A) 0.06 X 10*3/uL (0.00-0.10); Basophils % (A) 0.7 %; Eosinophils # (A) 0.09 X 10*3/uL (0.04-0.35); Eosinophils % (A) 1.1 %; HCT 43.1 % (37.2-46.3); HGB 13.6 g/dL (12.0-15.0); Lymphocytes # (A) 1.67 X 10*3/uL (0.90-5.00); Lymphocytes % (A) 20.1 %; MCHC 31.6 g/dL (32.0-37.0); MCV 98.2 FL (80.0-97.0); Mean Platelet Volume 9.5 FL (9.5-12.2); Monocytes # (A) 0.58 X 10*3/uL (0.20-1.00); NRBC Per 100 WBC 0 X 10*3/uL (0.00-0.01); Neutrophils # (A) 5.87 X 10*3/uL (1.80-7.70); Neutrophils % (A) 70.7 %; Platelet Count 304 X 10*3/uL (140-440); RBC 4.39 X 10*6/uL (4.10-5.20); RDW 12.8 % (11.5-14.5)
== END | disposition home or self-care (01) ==
LOC: LABPAT 10:38
PROVIDERS: ATTEND Surgery
DX: Z01.818 Encounter for other preprocedural examination (principal); K44.9 Diaphragmatic hernia without obstruction or gangrene; K21.00 Gastro-esophageal reflux disease with esophagitis, without bleeding
CPT/HCPCS: 85025; 93005

== ENCOUNTER 2023-11-24 08:11 | Day surgery (SDC) | payer MEDICARE, OTHER ==
[~2023-11-24 08:11] MED LIST changes: +ACETAMINOPHEN TAB 500 MG TAB PO PRN; -LACTATED RINGERS 1,000 ML IV SCH; +MIDAZOLAM 2 MG/2 ML VIAL IV PRN
[2023-11-24 09:22] LABS: Glucose,Whole Blood 107 mg/dL (70-110)
[2023-11-24] MEDS: IV FLUID CONTINUATION 1,000 ML IV ONE (09:22)
[2023-11-24] MEDS: ONDANSETRON 4 MG/2 ML VIAL IVP ONE (09:26)
[2023-11-24] MEDS: HEPARIN SODIUM,PORCINE 5,000 UNIT/ML 1 ML VIAL SQ PRN (09:26)
[2023-11-24] MEDS: DEXAMETHASONE SOD PHOSPHATE 4 MG/ML 1 ML VIAL IV ONE (09:26)
[2023-11-24] MEDS: METOCLOPRAMIDE 5 MG/ML 2 ML VIAL IVP STA (09:28)
[2023-11-24] MEDS: FAMOTIDINE 20 MG/2 ML VIAL IV STA (09:29)
[2023-11-24] MEDS ORDERED: PROPOFOL 10 MG/ML 20 ML VIAL IV ONE (09:40)
[2023-11-24] MEDS ORDERED: LIDOCAINE 1% INJ 10MG/ML (20 ML MDV) ONE (09:40)
[2023-11-24] MEDS ORDERED: SUGAMMADEX SODIUM 200 MG/2 ML SDV IV ONE (09:40)
[2023-11-24] MEDS ORDERED: PHENYLEPHRINE 10 MG/ML VIAL ONE (09:40)
[2023-11-24] MEDS ORDERED: KETAMINE HCL IN 0.9 % NACL 50 MG/5 ML SYRINGE ONE (09:40)
[2023-11-24] MEDS ORDERED: SUCCINYLCHOLINE CHLORIDE 200 MG/10 ML VIAL IV ONE (09:40)
[2023-11-24] MEDS ORDERED: ROCURONIUM 10 MG/ML (5 ML VIAL) IV ONE (09:40)
[2023-11-24] MEDS ORDERED: MIDAZOLAM 2 MG/2 ML VIAL ONE (09:40)
[2023-11-24] MEDS ORDERED: fentaNYL (PF) 50 MCG/ML 2 ML AMP ONE (09:40)
[2023-11-24 09:57] LABS: Potassium 4.8 mmol/L (3.5-5.1)
[2023-11-24] MEDS: LIDOCAINE 1%-EPI 1:100,000 20 ML VIAL SQ ONE (10:09)
[2023-11-24] MEDS: LACTATED RINGERS 1,000 ML IV ONE (10:40)
[2023-11-24] MEDS ORDERED: NALOXONE 0.4 MG/ML 1 ML VIAL IV PRN (11:01)
[2023-11-24] MEDS ORDERED: ACETAMINOPHEN TAB 325 MG TAB PO PRN (11:01)
[2023-11-24] MEDS ORDERED: ONDANSETRON 4 MG/2 ML VIAL IVP PRN (11:01)
--- NOTE | 2023-11-24 11:01 | P.OP ---
Date of Procedure: 11/24/23 Preoperative Diagnosis: Hiatal hernia Postoperative Diagnosis: Hiatal hernia Procedure(s) Performed: Laparoscopic repair of hiatal hernia with mesh Anesthesia: ANA PAULA Surgeon: Gab Casas Estimated Blood Loss (ml): 5 Pathology: none sent Condition: stable Disposition: PACU Description of Procedure: The patient was placed on the operating table in the supine position. She received general anesthesia. She was then placed in dorsal lithotomy position. Her abdomen was prepped and draped in the usual sterile fashion. The skin incision sites were anesthetized with 1% local Xylocaine. The skin was incised in the left periumbilical area with an 11 scalpel. Using a 5 mm blade was trocar under direct visitation the peritoneal cavity was entered. And then insufflated. After adequate insufflation the laparoscope was placed back into the peritoneal cavity. Next a 5 mm trocar was placed in the right epigastric and then the right lateral position. Another 5 mm trochars placed in the left lateral position. Another 5 mm trocar placed in the left epigastric position. And the original left periumbilical trocar was exchanged for a 10 mm trocar. The left lateral lobe liver was retracted. The patient had a large hiatal hernia. Using the Harmonic scissors the crural defect was dissected in the Harmonic scissors were used to dissect the hiatal hernia sac. . The stomach was reduced into the peritoneal cavity. The crura was dissected with the Harmonic scissors. And then the crural repair was performed using 2-0 Ethibond suture. The [place] bio A mesh was then placed over top of the repair and secured with 2-0 Ethibond suture. Patient had previous gastric sleeve. The stomach appeared to be without injury. The edges are good there is no bleeding seen. The trocars were withdrawn. The skin was then closed with interrupted 3- 0 Monocryl suture. Dermabond was applied. Patient Toller procedure well. She was sent to recovery room in stable condition.
[2023-11-24] MEDS: ENALAPRILAT 1.25 MG/ML 1 ML VIAL IVP PRN (11:29)
[2023-11-24] MEDS: HYDROmorphone 0.5 MG/0.5 ML SYRINGE IVP PRN ×2 (11:37→15:30)
[2023-11-24] MEDS: hydrALAZINE HCL 20 MG/ML 1 ML VIAL IVP STA (12:25)
[2023-11-24 12:56] LABS: Glucose,Whole Blood 164 mg/dL (70-110)
[2023-11-24] MEDS: LACTATED RINGERS 1,000 ML IV SCH ×2 (13:49→15:06)
[2023-11-24] MEDS: KETOROLAC 15 MG/ML 1 ML VIAL IVP SCH (13:55)
[2023-11-24] MEDS ORDERED: SYMBICORT 80-4.5 MCG INHALER INHALATION PRN (14:30)
[2023-11-24 15:26] LABS: Basophils % (A) 0 %; Eosinophils % (A) 0 %; HCT 43.2 % (34.0-46.0); HGB 14.2 gm/dL (11.4-16.0); Lymphocytes # (A) 0.4 k/uL (1.0-4.8); Lymphocytes % (A) 3 %; MCH 32.9 pg (25.0-35.0); MCHC 32.7 g/dL (31.0-37.0); MCV 100.4 fL (80.0-100.0); Mean Platelet Volume 7.4; Monocytes # (A) 0.3 k/uL (0-1.0); Monocytes % (A) 2 %; Neutrophils # (A) 12.6 k/uL (1.3-7.7); Neutrophils % (A) 94 %; Platelet Count 254 k/uL (150-450); RBC 4.31 m/uL (3.80-5.40); RDW 12.8 % (11.5-15.5); WBC 13.4 k/uL (3.8-10.6)
[2023-11-24 15:48] LABS: ALT 37 U/L (4-34); AST 42 U/L (14-36); African American GFR (CKD) >90 (>60 ml/min/1.73 sqM); Albumin 3.8 g/dL (3.5-5.0); Albumin/Globulin Ratio 1.4; Alkaline Phosphatase 94 U/L (38-126); Anion Gap 10 mmol/L; Blood Urea Nitrogen 14 mg/dL (7-17); Calcium 9.1 mg/dL (8.4-10.2); Carbon Dioxide 21 mmol/L (22-30); Chloride 105 mmol/L (98-107); Globulin 2.8 g/dL; Glucose 151 mg/dL (74-99); Non-African American GFR(CKD) 90 (>60 ml/min/1.73 sqM); Sodium 136 mmol/L (137-145); Total Bilirubin 0.4 mg/dL (0.2-1.3); Total Protein 6.6 g/dL (6.3-8.2)
[2023-11-24 17:26] LABS: Glucose,Whole Blood 153 mg/dL (70-110)
[2023-11-24 20:13] LABS: Glucose,Whole Blood 169 mg/dL (70-110)
[2023-11-24] MEDS: ALBUTEROL NEBULIZED 2.5 MG/3 ML INHALATION SCH (20:48)
--- NOTE | 2023-11-24 21:11 | CONS ---
CONSULTATION REASON FOR CONSULTATION: Advice regarding asthma, COPD, requested by surgery. HISTORY OF PRESENT ILLNESS: This is a 68-year-old woman with a past medical history of asthma, COPD, GERD hyperlipidemia being followed by Dr. Prakash in the outpatient setting, underwent laparoscopic repair of hiatal hernia with mesh. Currently, there is no history of any chest pain or palpitations. The patient complains of back pain and shoulder pain. The blood pressure is about 95/70. There is no history of any fever, rigors, or chills at this time. PAST MEDICAL HISTORY: History of asthma, COPD, rest of the history and rest of the chart is also reviewed. HOME MEDICATIONS: Reviewed include Zocor, dose and rest of medications reviewed. ALLERGIES: Latex. FAMILY HISTORY: History of CHF, history of DVT, reviewed. SOCIAL HISTORY: Previous history of smoking. REVIEW OF SYSTEMS: A 14-point review is negative except as mentioned earlier. PHYSICAL EXAMINATION: VITAL SIGNS: Pulse is 106, blood pressure 148/76, respirations 16. HEENT: Conjunctivae normal. NECK: No jugular venous distention. RESPIRATIONS: Diminished at the bases. CARDIOVASCULAR: S1, S2. ABDOMEN: Soft, status post surgery. LEGS: No edema, no swelling. NERVOUS SYSTEM: Nonfocal. SKIN: No ulcer, rash, bleeding. JOINTS: No active deforming arthropathy. LABORATORY DATA: Glucose 164. ASSESSMENT: 1. Status post laparoscopic repair of hiatal hernia with a mesh. 2. Asthma. 3. Chronic obstructive pulmonary disease. 4. Diabetes mellitus, type 2. 5. GERD. 6. Hyperlipidemia. 7. Hypertension. 8. History of bariatric surgery. RECOMMENDATIONS AND DISCUSSION: This 68-year-old woman presented with multiple complex medical issues, we will monitor the patient closely. Continue the current management, continue symptomatic treatment. The patient received Vasotec p.r.n. I would recommend to continue the IV fluids. Hold off the blood pressure medications. I would recommend labs also. Repeat labs in the morning. We will follow the patient closely with you. DVT prophylaxis. Incentive spirometry. Further recommendations to follow. MMODL / IJN: [id number] /
[2023-11-25 05:34] LABS: Glucose,Whole Blood 109 mg/dL (70-110)
[2023-11-25] MEDS: FLUoxetine HCL 20 MG CAP PO SCH (05:36)
[2023-11-25] MEDS ORDERED: methocarbamoL 750 MG TAB PO PRN (07:30)
[2023-11-25 08:00] VITALS: BP 133/69; PULSE 96; RESP 14; TEMP 98.6
[2023-11-25 08:35] LABS: Basophils # (A) 0.02 X 10*3/uL (0.00-0.10); Basophils % (A) 0.2 %; Eosinophils # (A) 0 X 10*3/uL (0.04-0.35); Eosinophils % (A) 0 %; HCT 40.4 % (37.2-46.3); Lymphocytes % (A) 9.5 %; MCH 32.1 pg (27.0-32.0); MCHC 32.2 g/dL (32.0-37.0); MCV 99.8 FL (80.0-97.0); Mean Platelet Volume 10.1 FL (9.5-12.2); Monocytes # (A) 0.57 X 10*3/uL (0.20-1.00); NRBC Per 100 WBC 0 X 10*3/uL (0.00-0.01); Neutrophils # (A) 7.97 X 10*3/uL (1.80-7.70); Platelet Count 268 X 10*3/uL (140-440); RBC 4.05 X 10*6/uL (4.10-5.20); RDW 12.7 % (11.5-14.5); WBC 9.49 X 10*3/uL (4.50-10.00)
[2023-11-25] MEDS: HYDROcodone/APAP 5-325MG 1 EACH TAB PO PRN (08:50)
[2023-11-25] MEDS: ENOXAPARIN 40 MG/0.4 ML SYRINGE SQ SCH (08:53)
[2023-11-25 08:57] LABS: BUN/Creat Ratio 14.22 Ratio (12.00-20.00); Blood Urea Nitrogen 12.8 mg/dL (9.0-27.0); Carbon Dioxide 24.2 mmol/L (21.6-31.8); Chloride 104 mmol/L (96-109); Glucose 132 mg/dL (70-110); Potassium 4.2 mmol/L (3.5-5.5); Sodium 138 mmol/L (135-145)
[2023-11-25 11:52] LABS: Glucose,Whole Blood 114 mg/dL (70-110)
--- NOTE | 2023-11-25 12:44 | P.DS ---
Providers Expected date of discharge: 11/25/23 Attending physician: Gab Casas Consults: 11/24/23 11:01 Consult Physician Routine Consulting Provider: Oli Bryant Consult Reason/Comments: Medical management Do you want consulting provider notified?: Yes Primary care physician: Leyla Nicholson Hospital Course: Discharge diagnosis Hiatal hernia Hospital course This is a 68-year-old female with history of a hiatal hernia. She is status post laparoscopic repair of hiatal hernia with mesh. Patient is tolerating diet. She reports her pain is controlled. She has been up and ambulating. She is afebrile. She is stable for discharge. Please refer to chart for any further details. Physician [employer] note has been reviewed by physician. Signing provider agrees with the documented findings, assessment, and plan of care. Patient Condition at Discharge: Stable Plan - Discharge Summary Discharge Rx Participant: No New Discharge Prescriptions: Continue Simvastatin [Zocor] 40 mg PO HS HYDROcodone/APAP 10-325MG [[place] 10-325] 1 tab PO Q8H PRN PRN Reason: Pain Budesonide/Formoterol Fumarate [Symbicort 80-4.5 Mcg Inhaler] 1 puff INHALATION BID PRN PRN Reason: Shortness Of Breath Or Wheezing Albuterol Inhaler [Ventolin Hfa Inhaler] 1 - 2 puff INHALATION Q6HR PRN PRN Reason: Shortness Of Breath FLUoxetine HCL [PROzac] 20 mg PO 1400 Cholecalciferol [Vitamin D3 (25 Mcg = 1000 Iu)] 2,000 unit PO DAILY Multivitamin [Multivitamins Adult Gummies] 2 tab PO DAILY Omeprazole 20 mg PO QAM Tirzepatide [Mounjaro] 10 mg SQ SA methocarbamoL 750 mg PO BID PRN PRN Reason: Muscle Spasm Discharge Medication List Simvastatin [Zocor] 40 mg PO HS 12/26/13 [History] HYDROcodone/APAP 10-325MG [[place] 10-325] 1 tab PO Q8H PRN 05/13/16 [History] Albuterol Inhaler [Ventolin Hfa Inhaler] 1 - 2 puff INHALATION Q6HR PRN 11/14/16 [History] Budesonide/Formoterol Fumarate [Symbicort 80-4.5 Mcg Inhaler] 1 puff INHALATION BID PRN 11/14/16 [History] FLUoxetine HCL [PROzac] 20 mg PO 1400 01/21/18 [History] Cholecalciferol [Vitamin D3 (25 Mcg = 1000 Iu)] 2,000 unit PO DAILY 06/01/18 [History] Multivitamin [Multivitamins Adult Gummies] 2 tab PO DAILY 11/29/18 [History] Omeprazole 20 mg PO QAM 06/11/23 [History] Tirzepatide [Mounjaro] 10 mg SQ SA 11/20/23 [History] methocarbamoL 750 mg PO BID PRN 11/20/23 [History] Follow up Appointment(s)/Referral(s): Leyla Nicholson DO [Primary Care Provider] - 1 Week Gab Casas MD [STAFF PHYSICIAN] - 12/10/23 1:40 pm Activity/Diet/Wound Care/Special Instructions: No driving while taking [place] No lifting over 10 pounds You may shower. No soaking or tub baths for 2 weeks Very light activity until you are reevaluated at your follow up appointment with your surgeon No straws or carbonated beverages [place]win a full liquid diet for the next 2 weeks Discharge Disposition: HOME SELF-CARE
--- NOTE | 2023-11-25 22:25 | P.PN ---
Progress Note - Text Progress Note Date: 11/25/23 Interval history: Patient is undergone laparoscopic repair of hiatal hernia with mesh. Patient follows Dr. Nicholson. On a bariatric liquid diet. No nausea vomiting. Reclining in bed. Comfortable. On examination: VITAL SIGNS: [98.6, 96, 14, 133 x 69, 94% room air] GENERAL APPEARANCE: BMI 33.7, comfortable. HEENT: Normal external appearance of nose and ear. Oral cavity normal EYES: Pupils equal. Conjunctiva normal. NECK: JVD not raised. Mass not palpable. RESPIRATORY: Respiratory effort normal. Lungs clear to auscultation. CARDIOVASCULAR: First and second sounds normal. No edema. ABDOMEN: Soft. Liver and spleen not palpable. No tenderness. No mass palpable. Laparoscopic sites. PSYCHIATRY: Alert and oriented x3. Mood and affect normal. INVESTIGATIONS, reviewed in the clinical context: November 24: White count 9.4 hemoglobin 13 platelets 268 potassium 4.2 creatinine 0.9 Assessment plan: -COPD in a previous smoker Diabetes mellitus type 2 GERD Hyperlipidemia Primary osteoarthritis Chronic pain neck back shoulder Iron deficiency Anxiety depression Care was discussed with the patient. Medications reviewed. Patient to follow- up with the family doctor but discharge. Thank you
== END 2023-11-25 12:55 | disposition home or self-care (01) ==
LOC: OR 08:11 → 6NMEDSUR 10:42 → OR 11-25 12:55
PROVIDERS: ATTEND Surgery
DX: K44.9 Diaphragmatic hernia without obstruction or gangrene (principal); E11.9 Type 2 diabetes mellitus without complications; E61.1 Iron deficiency; E78.5 Hyperlipidemia, unspecified; F32.A Depression, unspecified; F41.9 Anxiety disorder, unspecified; G89.29 Other chronic pain; I10 Essential (primary) hypertension; J44.89 Other specified chronic obstructive pulmonary disease; K21.9 Gastro-esophageal reflux disease without esophagitis; Z87.891 Personal history of nicotine dependence; Z98.84 Bariatric surgery status; Z79.899 Other long term (current) drug therapy; Z91.040 Latex allergy status
CPT/HCPCS: 80051; 80053; 80048; 85025 ×2; 43282; C1781; J0360; J1644; J1100; J2765; J0690; J2405; J1650; J3490; J1885 ×2; J1170